=== PATIENT | female | born 1940 | race Caucasian/White ===

== ENCOUNTER 2018-05-22 16:51 | Inpatient (IN) | payer MEDICARE, MEDICAID ==
[2018-05-22] MEDS ORDERED: Sodium Chloride 0.9% 1,000 ML IV ONE (17:24)
[2018-05-22] MEDS ORDERED: Sodium Chloride 0.9% 10 ML Syringe FLUSH PRN ×2 (17:24→17:55)
[2018-05-22] MEDS ORDERED: Iopamidol 612 MG/ML 100 ML Bottle IVPUSH ONE (17:55)
--- NOTE | 2018-05-22 18:05 | EDM.PDOC ---
ED HPI GENERAL MEDICAL PROBLEM - General Chief Complaint: Neurological Problem Stated Complaint: [facility] Time Seen by Provider: 05/22/18 17:15 Source of Information: Reports: Patient History Limitations: Reports: No Limitations - History of Present Illness INITIAL COMMENTS - FREE TEXT/NARRATIVE: 77-year-old female arrives via [facility] for evaluation and treatment of injury sustained from a fall. Patient lives at home by herself. Is unclear when she fell. Her family members present states that nobody has heard from her since Sunday. Patient tells me that she fell yesterday and has been on the floor since. She states that she became dizzy. Hit her head when she fell but denies any loss of consciousness. At this point she is complaining of a headache, neck pain, bilateral shoulder pain, lower abdominal pain, back pain and pain to the left hip. She denies any nausea or vomiting. No dizziness at this time. Location: Reports: Head, Neck, Abdomen (Lower abdomen), Pelvis (Left hip), Upper Extremity, Left, Upper Extremity, Right Headache Pain Score (Numeric/FACES): 9 Bilateral Shoulder Pain Score (Numeric/FACES): 9 - Related Data Allergies Allergy/AdvReac Type Severity Reaction Status Date / Time No Known Allergies Allergy Verified 05/22/18 16:58 Home Meds: Home Meds Acetaminophen/Codeine [Tylenol with Codeine No.3 300MG/30MG] 1 cap PO Q4HR PRN 12/31/14 [History] Furosemide [Lasix] 40 mg PO DAILY 12/31/14 [History] Magnesium Oxide 400 mg PO DAILY 12/31/14 [History] Metoprolol Tartrate 50 mg PO BID 12/31/14 [History] Multivitamin [Multivitamins] 1 tab PO DAILY 12/31/14 [History] Potassium Chloride 40 meq PO DAILY 12/31/14 [History] amLODIPine [Norvasc] 5 mg PO DAILY 12/31/14 [History] Rosuvastatin [Crestor] 40 mg PO DAILY 04/15/15 [History] Clopidogrel [Plavix] 75 mg PO DAILY 05/22/18 [History] Sertraline [Zoloft] 100 mg PO DAILY 05/22/18 [History] Spironolactone [Aldactone] 25 mg PO DAILY 05/22/18 [History] Past Medical History HEENT History: Reports: Other (See Below) Other HEENT History: bilateral hearing loss Cardiovascular History: Reports: Heart Failure, High Cholesterol, Hypertension, [place], Other (See Below) Other Cardiovascular History: aortic stenosis Gastrointestinal History: Reports: Other (See Below) Other Gastrointestinal History: hernia Genitourinary History: Reports: Other (See Below) Other Genitourinary History: hematuria Musculoskeletal History: Reports: Gout Psychiatric History: Reports: Depression - Infectious Disease History Infectious Disease History: Reports: Scarlet Fever - Past Surgical History Cardiovascular Surgical History: Reports: Coronary Artery Bypass GI Surgical History: Reports: Cholecystectomy Musculoskeletal Surgical History: Reports: Knee Replacement, Shoulder Replacement, Other (See Below) Other Musculoskeletal Surgeries/Procedures:: lumbar decompression Social & Family History - Tobacco Use Smoking Status *Q: Former Smoker Used Tobacco, but Quit: Yes Month/Year Tobacco Last Used: 20 years ago - Caffeine Use Caffeine Use: Reports: Coffee, Tea - Alcohol Use Days Per Week of Alcohol Use: 7 Number of Drinks Per Day: 4 Total Drinks Per Week: 28 - Recreational Drug Use Recreational Drug Use: No ED ROS GENERAL - Review of Systems Review Of Systems: See Below Constitutional: Denies: Weakness Respiratory: Denies: Shortness of Breath Cardiovascular: Denies: Chest Pain GI/Abdominal: Reports: Abdominal Pain (Lower abdomen). Denies: Nausea, Vomiting Musculoskeletal: Reports: Neck Pain, Shoulder Pain (Bilateral), Other (Left hip pain) Neurological: Reports: Headache. Denies: Numbness, Syncope, Tingling, Weakness ED EXAM, GENERAL - Physical Exam Exam: See Below Exam Limited By: No Limitations General Appearance: Alert, WD/WN, No Apparent Distress Eye Exam: Bilateral Eye: EOMI, Normal Inspection, PERRL Ears: Normal External Exam Nose: Normal Inspection Throat/Mouth: Normal Inspection, Normal Lips, Normal Voice, No Airway Compromise Head: Other (Scalp tenderness to the right posterior parietal scalp) Neck: Normal Inspection, Supple, Non-Tender, Full Range of Motion Respiratory/Chest: No Respiratory Distress, Lungs Clear, Normal Breath Sounds, Chest Non-Tender Cardiovascular: Normal Peripheral Pulses, Regular Rate, Rhythm, No Murmur GI/Abdominal: Normal Bowel Sounds, Soft, Non-Tender Extremities: Normal Inspection (No obvious deformities to the bilateral shoulders. Pelvis stable. No external rotation to the bilateral lower legs. No limb length shortening.) Neurological: Alert, Oriented, Normal Cognition, Other (Smile is symmetric. No slurred speech. Medical Imaging Tech strength is 5 out of 5 bilaterally. Dorsiflexion plantar flexion 5 out of 5 bilaterally.) Psychiatric: Normal Affect, Normal Mood Skin Exam: Warm, Dry, Normal Color EKG INTERPRETATION EKG Date: 05/22/18 Time: 17:30 Rhythm: NSR Rate (Beats/Min): 93 [place]: Normal P-Wave: Present QRS: Normal ST-T: Normal QT: Normal EKG Interpretation Comments: Normal sinus rhythm at 93 bpm. Left ventricular hypertrophy pattern with strain. Decreased voltage limb leads. Nonspecific intraventricular conduction delay. QT borderline prolonged, QTC 488. Reviewed by myself and Dr. Carty. Course - Vital Signs Last Recorded V/S: Last Vital Signs Temp 98.9 F 05/22/18 16:54 Pulse 90 05/22/18 16:54 Resp 18 05/22/18 16:54 BP 203/96 H 05/22/18 16:54 Pulse Ox 99 05/22/18 16:54 - Orders/Labs/Meds Orders: Active Orders 24 hr Category Date Time Status Patient Status [ADT] Routine ADT 05/22/18 22:04 Active Cardiac Monitoring [RC] CONTINUOUS Care 05/22/18 20:53 Active EKG 12 Lead [EKG Documentation Completion] [RC] STAT Care 05/22/18 17:24 Active Height and Weight [RC] DAILY Care 05/22/18 20:52 Active Intake and Output [RC] QSHIFT Care 05/22/18 20:53 Active Oxygen Therapy [RC] PRN Care 05/22/18 20:52 Active Peripheral IV Care [RC] . DIRECTED Care 05/22/18 17:25 Active RT Aerosol Therapy [RC] ASDIRECTED Care 05/22/18 20:57 Active Up With Assistance [RC] ASDIRECTED Care 05/22/18 20:52 Active Up ad [place] [RC] ASDIRECTED Care 05/22/18 20:52 Active Urinary Catheter Assessment [RC] ASDIRECTED Care 05/22/18 17:36 Active Urinary Catheter Insertion [Insert Urinary Catheter] [ Care 05/22/18 17:45 Ordered OM.PC] Q24H VTE/DVT Education [RC] PER UNIT ROUTINE Care 05/22/18 20:52 Active Vital Signs [RC] Q4H Care 05/22/18 20:52 Active Consult to Case Management/Coloring Machine Operator [CONS] Cons 05/22/18 20:52 Active Routine Consult to Spiritual Care [CONS] Routine Cons 05/22/18 20:52 Active OT Evaluation and Treatment [CONS] Routine Cons 05/22/18 20:52 Active PT Evaluation and Treatment [CONS] Routine Cons 05/22/18 20:52 Active Respiratory Care Assess and Treatment [CONS] Routine Cons 05/22/18 20:52 Active 2 Gram Sodium Diet [DIET] Diet 05/22/18 Breakfast Active Heart Healthy Diet [DIET] Diet 05/22/18 Dinner Active Cervical Spine wo Cont [CT] Stat Exams 05/22/18 17:24 Taken Chest Abdomen Pelvis w Cont [CT] Stat Exams 05/22/18 17:24 Taken Head wo Cont [CT] Stat Exams 05/22/18 17:24 Taken BASIC METABOLIC PANEL,BMP [CHEM] AM Lab 05/23/18 05:11 Ordered BASIC METABOLIC PANEL,BMP [CHEM] AM Lab 05/24/18 05:11 Ordered BASIC METABOLIC PANEL,BMP [CHEM] AM Lab 05/25/18 05:11 Ordered BASIC METABOLIC PANEL,BMP [CHEM] AM Lab 05/26/18 05:11 Ordered BASIC METABOLIC PANEL,BMP [CHEM] AM Lab 05/27/18 05:11 Ordered C-REACTIVE PROTEIN [CHEM] AM Lab 05/23/18 05:11 Ordered C-REACTIVE PROTEIN [CHEM] AM Lab 05/24/18 05:11 Ordered C-REACTIVE PROTEIN [CHEM] AM Lab 05/25/18 05:11 Ordered C-REACTIVE PROTEIN [CHEM] AM Lab 05/26/18 05:11 Ordered C-REACTIVE PROTEIN [CHEM] AM Lab 05/27/18 05:11 Ordered CBC WITH AUTO DIFF [HEME] AM Lab 05/23/18 05:11 Ordered CBC WITH AUTO DIFF [HEME] AM Lab 05/24/18 05:11 Ordered CBC WITH AUTO DIFF [HEME] AM Lab 05/25/18 05:11 Ordered CBC WITH AUTO DIFF [HEME] AM Lab 05/26/18 05:11 Ordered CBC WITH AUTO DIFF [HEME] AM Lab 05/27/18 05:11 Ordered CPK [CREATINE KINASE,CK] [CHEM] AM Lab 05/23/18 05:11 Ordered CULTURE BLOOD [BC] Stat Lab 05/22/18 21:03 Ordered CULTURE BLOOD [BC] Stat Lab 05/22/18 21:03 Ordered CULTURE URINE [RM] Stat Lab 05/22/18 17:20 Received MAGNESIUM [CHEM] AM Lab 05/23/18 05:11 Ordered MAGNESIUM [CHEM] AM Lab 05/24/18 05:11 Ordered MAGNESIUM [CHEM] AM Lab 05/25/18 05:11 Ordered MAGNESIUM [CHEM] AM Lab 05/26/18 05:11 Ordered MAGNESIUM [CHEM] AM Lab 05/27/18 05:11 Ordered PRO B-TYPE NATRIUR PEPT,BNPPRO [CHEM] DAILY Lab 05/23/18 05:11 Ordered PRO B-TYPE NATRIUR PEPT,BNPPRO [CHEM] DAILY Lab 05/24/18 05:11 Ordered PRO B-TYPE NATRIUR PEPT,BNPPRO [CHEM] DAILY Lab 05/25/18 05:11 Ordered PRO B-TYPE NATRIUR PEPT,BNPPRO [CHEM] DAILY Lab 05/26/18 05:11 Ordered Acetaminophen [Tylenol] Med 05/22/18 20:52 Active 650 mg PO Q4H PRN Acetaminophen/Codeine [Tylenol with Codeine No.3 300MG/ Med 05/22/18 20:49 Active 30MG] 1 tab PO Q4H PRN Acetaminophen/HYDROcodone [[place] 325-5 MG] Med 05/22/18 20:52 Active 1 tab PO Q4H PRN Albuterol/Ipratropium [DuoNeb 3.0-0.5 MG/3 ML] Med 05/22/18 20:52 Active 3 ml NEB Q4H PRN Bisacodyl [Dulcolax] Med 05/22/18 20:52 Active 5 mg PO DAILY PRN Clopidogrel [Plavix] Med 05/23/18 09:00 Active 75 mg PO DAILY Docusate Sodium [Colace] Med 05/22/18 20:52 Active 100 mg PO BID PRN Docusate Sodium/Sennosides [Senna Plus] Med 05/22/18 20:52 Active 1 tab PO BID PRN Furosemide [Lasix] Med 05/23/18 09:00 Active 40 mg PO DAILY HYDROmorphone [Dilaudid] Med 05/22/18 20:52 Active 0.25 mg IVPUSH Q2H PRN LORazepam [Ativan] Med 05/22/18 20:52 Active 0.25 mg IV Q6H PRN Magnesium Oxide Med 05/23/18 09:00 Active 400 mg PO DAILY Magnesium Rep Pharmacy to Dose [Pharmacy to Dose - Med 05/22/18 21:00 Pending Magnesium Replacement] 1 dose .XX ASDIRECTED Metoprolol Tartrate [Lopressor] Med 05/22/18 20:52 Active 5 mg IVPUSH Q4H PRN Metoprolol Tartrate [Lopressor] Med 05/22/18 21:00 Active 50 mg PO BID Multivitamins,Therapeutic [Thera] Med 05/23/18 09:00 Active 1 each PO DAILY Nicotine [Habitrol] Med 05/22/18 20:52 Active 21 mg TRDERM DAILY PRN Ondansetron [Zofran] Med 05/22/18 20:52 Active 4 mg IV Q6H PRN Polyethylene Glycol 3350 [MiraLAX] Med 05/22/18 20:52 Active 17 gm PO DAILY PRN Potassium Chloride [Klor-Con M20] Med 05/23/18 09:00 Active 40 meq PO DAILY Potassium Rep Pharmacy to Dose [Pharmacy to Dose - Med 05/22/18 21:00 Pending Potassium Replacement] 1 dose .XX ASDIRECTED Promethazine [Phenergan] 6.25 mg Med 05/22/18 20:52 Active Sodium Chloride 0.9% [Normal Saline] 50 ml IV Q6H Remove Patch Med 05/23/18 09:00 Active 1 ea TRDERM DAILY Rosuvastatin [Crestor] Med 05/23/18 09:00 Active 40 mg PO DAILY Saccharomyces Boulardii [Florastor] Med 05/23/18 09:00 Active 250 mg PO DAILY Sertraline [Zoloft] Med 05/23/18 09:00 Active 100 mg PO DAILY Sodium Chloride 0.9% [Saline Flush] Med 05/22/18 17:24 Active 10 ml FLUSH ASDIRECTED PRN Sodium Chloride 0.9% [Saline Flush] Med 05/22/18 17:55 Active 10 ml FLUSH ONETIME PRN Spironolactone [Aldactone] Med 05/23/18 09:00 Active 25 mg PO DAILY Temazepam [Restoril] Med 05/22/18 20:52 Active 7.5 mg PO BEDTIME PRN amLODIPine [Norvasc] Med 05/23/18 09:00 Active 5 mg PO DAILY cefTRIAXone [Rocephin] 1 gm Med 05/23/18 18:00 Active Sodium Chloride 0.9% [Normal Saline] 100 ml IV Q24H hydrALAZINE [Apresoline] Med 05/22/18 20:52 Active 20 mg IVPUSH Q4H PRN Blood Culture x2 Reflex Set [OM.PC] Stat Oth 05/22/18 21:02 Ordered Peripheral IV Insertion Adult [OM.PC] Routine Oth 05/22/18 17:24 Ordered Precautions [COMM] Routine Oth 05/22/18 21:05 Ordered Resuscitation Status Routine Resus Stat 05/22/18 20:52 Ordered Medication Orders Acetaminophen (Tylenol) 650 mg PO Q4H PRN PRN Reason: Pain (Mild 1-3)/fever Acetaminophen/Codeine Phosphate (Tylenol With Codeine No.3 300mg/30mg) 1 tab PO Q4H PRN PRN Reason: Pain Hydrocodone Bitart/Acetaminophen ([place] 325-5 Mg) 1 tab PO Q4H PRN PRN Reason: Pain (moderate 4-6) Albuterol/Ipratropium (Duoneb 3.0-0.5 Mg/3 Ml) 3 ml NEB Q4H PRN PRN Reason: Shortness Of Breath/wheezing Amlodipine Besylate (Norvasc) 5 mg PO DAILY [facility] Bisacodyl (Dulcolax) 5 mg PO DAILY PRN PRN Reason: Constipation Clopidogrel Bisulfate (Plavix) 75 mg PO DAILY [facility] Docusate Sodium (Colace) 100 mg PO BID PRN PRN Reason: Constipation Furosemide (Lasix) 40 mg PO DAILY [facility] Hydralazine HCl (Apresoline) 20 mg IVPUSH Q4H PRN PRN Reason: Hypertension Hydromorphone HCl (Dilaudid) 0.25 mg IVPUSH Q2H PRN PRN Reason: Pain (severe 7-10) Promethazine HCl 6.25 mg/ (Sodium Chloride) 50.25 mls @ 100 mls/hr IV Q6H PRN PRN Reason: Nausea/Vomiting Ceftriaxone Sodium 1 gm/ (Sodium Chloride) 100 mls @ 200 mls/hr IV Q24H [facility] Lorazepam (Ativan) 0.25 mg IV Q6H PRN PRN Reason: Anxiety Magnesium Oxide (Magnesium Oxide) 400 mg PO DAILY [facility] Magnesium Sulfate (Pharmacy To Dose - Magnesium Replacement) 1 dose .XX ASDIRECTED [facility] Metoprolol Tartrate (Lopressor) 50 mg PO BID [facility] Metoprolol Tartrate (Lopressor) 5 mg IVPUSH Q4H PRN PRN Reason: Tachycardia Miscellaneous Information (Remove Patch) 1 ea TRDERM DAILY [facility] Multivitamins (Thera) 1 each PO DAILY [facility] Nicotine (Habitrol) 21 mg TRDERM DAILY PRN PRN Reason: Nicotine Dependence Ondansetron HCl (Zofran) 4 mg IV Q6H PRN PRN Reason: Nausea/Vomiting Polyethylene Glycol (Miralax) 17 gm PO DAILY PRN PRN Reason: Constipation Potassium Chloride (Klor-Con M20) 40 meq PO DAILY [facility] Potassium Chloride (Pharmacy To Dose - Potassium Replacement) 1 dose .XX ASDIRECTED [facility] Rosuvastatin Calcium (Crestor) 40 mg PO DAILY [facility] Saccharomyces Boulardii (Florastor) 250 mg PO DAILY [facility] Senna/Docusate Sodium (Senna Plus) 1 tab PO BID PRN PRN Reason: Constipation Sertraline HCl (Zoloft) 100 mg PO DAILY [facility] Sodium Chloride (Saline Flush) 10 ml FLUSH ASDIRECTED PRN PRN Reason: Keep Vein Open Last Admin: 05/22/18 17:41 Dose: 10 ml Sodium Chloride (Saline Flush) 10 ml FLUSH ONETIME PRN PRN Reason: IV FLUSH Last Admin: 05/22/18 18:20 Dose: 10 ml Spironolactone (Aldactone) 25 mg PO DAILY [facility] Temazepam (Restoril) 7.5 mg PO BEDTIME PRN PRN Reason: Sleep Labs: Laboratory Tests 05/22/18 05/22/18 05/22/18 Range/Units 17:15 18:00 18:00 WBC 10.91 H (3.98-10.04) K/mm3 RBC 4.23 (3.98-5.22) M/mm3 Hgb 13.1 (11.2-15.7) gm/L Hct 39.8 (34.1-44.9) % MCV 94.1 (79.4-94.8) fl MCH 31.0 (25.6-32.2) pg MCHC 32.9 (32.2-35.5) g/dl RDW Std Deviation 45.5 (36.4-46.3) fL Plt Count 194 (182-369) K/mm3 MPV 8.9 L (9.4-12.3) fl Neutrophils % (Manual) 91 H (40-60) % Band Neutrophils % 0 (0-10) % Lymphocytes % (Manual) 8 L (20-40) % Atypical Lymphs % 0 % Monocytes % (Manual) 1 L (2-10) % Eosinophils % (Manual) 0 L (0.7-5.8) % Basophils % (Manual) 0 L (0.1-1.2) Platelet Estimate Adequate Plt Morphology Comment Normal Anisocytosis 1+ slight Microcytosis 1+ slight Macrocytosis 1+ slight RBC Morph Comment Abnormal PT (9.5-12.1) SECONDS INR APTT (24-31) SECONDS Sodium 140 (136-145) mEq/L Potassium 4.2 (3.5-5.1) mEq/L Chloride 102 (98-107) mEq/L Carbon Dioxide 19 L (21-32) mEq/L Anion Gap 23.2 H (5-15) BUN 16 (7-18) mg/dL Creatinine 1.2 H (0.55-1.02) mg/dL Est Cr Clr Drug Dosing 27.30 mL/min Estimated GFR (MDRD) 43 (>60) mL/min BUN/Creatinine Ratio 13.3 L (14-18) Glucose 89 (83-115) mg/dL Lactic Acid (0.4-2.0) mmol/L Calcium 9.8 (8.5-10.1) mg/dL Magnesium 1.8 (1.8-2.4) mg/dl Total Bilirubin 0.7 (0.2-1.0) mg/dL AST 45 H (15-37) U/L ALT 37 (14-59) U/L Alkaline Phosphatase 80 (46-116) U/L Creatine Kinase 661 H (26-192) U/L Troponin I 0.052 (0.00-0.056) ng/mL NT-Pro-B Natriuret Pep (0-450) pg/mL Total Protein 7.8 (6.4-8.2) g/dl Albumin 3.7 (3.4-5.0) g/dl Globulin 4.1 gm/dL Albumin/Globulin Ratio 0.9 L (1-2) Urine Color Yellow (Yellow) Urine Appearance Clear (Clear) Urine pH 6.0 (5.0-8.0) Ur Specific [place] > or = 1.030 (1.005-1.030) Urine Protein 3+ H (Negative) Urine Glucose (UA) Negative (Negative) Urine Ketones 3+ H (Negative) Urine Occult Blood 2+ H (Negative) Urine Nitrite Positive H (Negative) Urine Bilirubin Negative (Negative) Urine Urobilinogen 0.2 (0.2-1.0) Ur Leukocyte Esterase 1+ H (Negative) Urine RBC Not seen (0-5) /hpf Urine WBC 30-40 H (0-5) /hpf Ur Epithelial Cells 0-5 (0-5) /hpf Urine Bacteria Many H (FEW) /hpf Urine Mucus Not seen (FEW) /hpf 05/22/18 05/22/18 05/22/18 Range/Units 18:00 18:00 20:05 WBC (3.98-10.04) K/mm3 RBC (3.98-5.22) M/mm3 Hgb (11.2-15.7) gm/L Hct (34.1-44.9) % MCV (79.4-94.8) fl MCH (25.6-32.2) pg MCHC (32.2-35.5) g/dl RDW Std Deviation (36.4-46.3) fL Plt Count (182-369) K/mm3 MPV (9.4-12.3) fl Neutrophils % (Manual) (40-60) % Band Neutrophils % (0-10) % Lymphocytes % (Manual) (20-40) % Atypical Lymphs % % Monocytes % (Manual) (2-10) % Eosinophils % (Manual) (0.7-5.8) % Basophils % (Manual) (0.1-1.2) Platelet Estimate Plt Morphology Comment Anisocytosis Microcytosis Macrocytosis RBC Morph Comment PT 10.7 (9.5-12.1) SECONDS INR 0.98 APTT 30 (24-31) SECONDS Sodium (136-145) mEq/L Potassium (3.5-5.1) mEq/L Chloride (98-107) mEq/L Carbon Dioxide (21-32) mEq/L Anion Gap (5-15) BUN (7-18) mg/dL Creatinine (0.55-1.02) mg/dL Est Cr Clr Drug Dosing mL/min Estimated GFR (MDRD) (>60) mL/min BUN/Creatinine Ratio (14-18) Glucose (83-115) mg/dL Lactic Acid 0.9 (0.4-2.0) mmol/L Calcium (8.5-10.1) mg/dL Magnesium (1.8-2.4) mg/dl Total Bilirubin (0.2-1.0) mg/dL AST (15-37) U/L ALT (14-59) U/L Alkaline Phosphatase (46-116) U/L Creatine Kinase (26-192) U/L Troponin I (0.00-0.056) ng/mL NT-Pro-B Natriuret Pep 3384 H (0-450) pg/mL Total Protein (6.4-8.2) g/dl Albumin (3.4-5.0) g/dl Globulin gm/dL Albumin/Globulin Ratio (1-2) Urine Color (Yellow) Urine Appearance (Clear) Urine pH (5.0-8.0) Ur Specific [place] (1.005-1.030) Urine Protein (Negative) Urine Glucose (UA) (Negative) Urine Ketones (Negative) Urine Occult Blood (Negative) Urine Nitrite (Negative) Urine Bilirubin (Negative) Urine Urobilinogen (0.2-1.0) Ur Leukocyte Esterase (Negative) Urine RBC (0-5) /hpf Urine WBC (0-5) /hpf Ur Epithelial Cells (0-5) /hpf Urine Bacteria (FEW) /hpf Urine Mucus (FEW) /hpf Meds: Medications Generic Name Dose Route Start Last Admin Trade Name Freq PRN Reason Stop Dose Admin Acetaminophen 650 mg 05/22/18 20:52 Tylenol PO Q4H PRN Pain (Mild 1-3)/fever Acetaminophen/Codeine Phosphate 1 tab 05/22/18 20:49 Tylenol With Codeine No.3 300mg/30mg PO Q4H PRN Pain Hydrocodone Bitart/Acetaminophen 1 tab 05/22/18 20:52 [place] 325-5 Mg PO Q4H PRN Pain (moderate 4-6) Albuterol/Ipratropium 3 ml 05/22/18 20:52 Duoneb 3.0-0.5 Mg/3 Ml NEB Q4H PRN Shortness Of Breath/wheezing Amlodipine Besylate 5 mg 05/23/18 09:00 Norvasc PO DAILY [facility] Bisacodyl 5 mg 05/22/18 20:52 Dulcolax PO DAILY PRN Constipation Clopidogrel Bisulfate 75 mg 05/23/18 09:00 Plavix PO DAILY [facility] Docusate Sodium 100 mg 05/22/18 20:52 Colace PO BID PRN Constipation Furosemide 40 mg 05/23/18 09:00 Lasix PO DAILY [facility] Hydralazine HCl 20 mg 05/22/18 20:52 Apresoline IVPUSH Q4H PRN Hypertension Hydromorphone HCl 0.25 mg 05/22/18 20:52 Dilaudid IVPUSH Q2H PRN Pain (severe 7-10) Promethazine HCl 6.25 mg/ 50.25 mls @ 100 mls/hr 05/22/18 20:52 Sodium Chloride IV Q6H PRN Nausea/Vomiting Ceftriaxone Sodium 1 gm/ 100 mls @ 200 mls/hr 05/23/18 18:00 Sodium Chloride IV Q24H [facility] Lorazepam 0.25 mg 05/22/18 20:52 Ativan IV Q6H PRN Anxiety Magnesium Oxide 400 mg 05/23/18 09:00 Magnesium Oxide PO DAILY [facility] Magnesium Sulfate 1 dose 05/22/18 21:00 Pharmacy To Dose - Magnesium Replacement .XX ASDIRECTED [facility] Metoprolol Tartrate 50 mg 05/22/18 21:00 Lopressor PO BID [facility] Metoprolol Tartrate 5 mg 05/22/18 20:52 Lopressor IVPUSH Q4H PRN Tachycardia Miscellaneous Information 1 ea 05/23/18 09:00 Remove Patch TRDERM DAILY [facility] Multivitamins 1 each 05/23/18 09:00 Thera PO DAILY [facility] Nicotine 21 mg 05/22/18 20:52 Habitrol TRDERM DAILY PRN Nicotine Dependence Ondansetron HCl 4 mg 05/22/18 20:52 Zofran IV Q6H PRN Nausea/Vomiting Polyethylene Glycol 17 gm 05/22/18 20:52 Miralax PO DAILY PRN Constipation Potassium Chloride 40 meq 05/23/18 09:00 Klor-Con M20 PO DAILY [facility] Potassium Chloride 1 dose 05/22/18 21:00 Pharmacy To Dose - Potassium Replacement .XX ASDIRECTED [facility] Rosuvastatin Calcium 40 mg 05/23/18 09:00 Crestor PO DAILY [facility] Saccharomyces Boulardii 250 mg 05/23/18 09:00 Florastor PO DAILY [facility] Senna/Docusate Sodium 1 tab 05/22/18 20:52 Senna Plus PO BID PRN Constipation Sertraline HCl 100 mg 05/23/18 09:00 Zoloft PO DAILY [facility] Sodium Chloride 10 ml 05/22/18 17:24 05/22/18 17:41 Saline Flush FLUSH 10 ml ASDIRECTED PRN Administration Keep Vein Open Sodium Chloride 10 ml 05/22/18 17:55 05/22/18 18:20 Saline Flush FLUSH 10 ml ONETIME PRN Administration IV FLUSH Spironolactone 25 mg 05/23/18 09:00 Aldactone PO DAILY [facility] Temazepam 7.5 mg 05/22/18 20:52 Restoril PO BEDTIME PRN Sleep Discontinued Medications Generic Name Dose Route Start Last Admin Trade Name Freq PRN Reason Stop Dose Admin Sodium Chloride 1,000 mls @ 500 mls/hr 05/22/18 17:24 05/22/18 17:40 Normal Saline IV 05/22/18 19:23 500 mls/hr ONETIME ONE Administration Ceftriaxone Sodium 2 gm/ 100 mls @ 100 mls/hr 05/22/18 19:09 05/22/18 19:20 Sodium Chloride IV 05/22/18 20:08 100 mls/hr ONETIME ONE Administration Iopamidol 100 ml 05/22/18 17:55 05/22/18 18:20 Isovue-300 (61%) IVPUSH 05/22/18 17:56 100 ml ONETIME ONE Administration Magnesium Oxide 400 mg 05/22/18 21:15 Magnesium Oxide PO 05/22/18 21:16 ONETIME ONE - Radiology Interpretation Free Text/Narrative:: CT of the head without contrast impression per Vrad : no acute intercranial findings. CT of the cervical spine without contrast impression per vrad : no fracture. Cervical spondylosis as noted. CT of the chest with IV contrast impression per vrad : no acute traumatic findings. CT of the abdomen and pelvis with IV contrast impression per vrad : no acute traumatic findings. - Re-Assessments/Exams Free Text/Narrative Re-Assessment/Exam: 05/22/18 22:00 I reviewed the labs, EKG and imaging with the patient. At this time it appears she is has dehydration and urinary tract infection. 2 mg of IV Rocephin ordered. Urine sent for culture. I do not feel that she is safe to return home by herself and am recommending admission. Informed that she would be an observation admission at this time and encouraged to bring medications from home to help cover cost. Informed of chance of the stay not being covered by Medicare. Agreed to the admission. Informed family that she will likely see social work and likely a discussion of prison placement will take place. They will discuss this further when the patient's daughter arrives from [place]. Case discussed with Dr. Curiel, hospitalist siebel consultant. He agrees to the admission. Departure - Departure Time of Disposition: 22:05 Disposition: Refer to Observation Condition: Fair Clinical Impression: UTI (urinary tract infection), Dehydration, Fall, Elevated CPK - Discharge Information *PRESCRIPTION DRUG MONITORING PROGRAM REVIEWED*: No *COPY OF PRESCRIPTION DRUG MONITORING REPORT IN PATIENT TARIK: No Referrals: PCP,None [Primary Care Provider] - Marisol Samuels MD [Physician] - Forms: ED Department Discharge Additional Instructions: Patient admitted for observation for status post fall as well as management of dehydration and urinary tract infection. - My Orders Last 24 Hours: My Active Orders 05/22/18 17:20 CULTURE URINE [RM] Stat 05/22/18 17:24 EKG 12 Lead [EKG Documentation Completion] [RC] STAT Cervical Spine wo Cont [CT] Stat Chest Abdomen Pelvis w Cont [CT] Stat Head wo Cont [CT] Stat Sodium Chloride 0.9% [Saline Flush] 10 ml FLUSH ASDIRECTED PRN Peripheral IV Insertion Adult [OM.PC] Routine 05/22/18 17:25 Peripheral IV Care [RC] . DIRECTED 05/22/18 17:36 Urinary Catheter Assessment [RC] ASDIRECTED 05/22/18 17:45 Urinary Catheter Insertion [Insert Urinary Catheter] [OM.PC] Q24H 05/22/18 17:55 Sodium Chloride 0.9% [Saline Flush] 10 ml FLUSH ONETIME PRN 05/22/18 22:04 Patient Status [ADT] Routine - Assessment/Plan Last 24 Hours: My Active Orders 05/22/18 17:20 CULTURE URINE [RM] Stat 05/22/18 17:24 EKG 12 Lead [EKG Documentation Completion] [RC] STAT Cervical Spine wo Cont [CT] Stat Chest Abdomen Pelvis w Cont [CT] Stat Head wo Cont [CT] Stat Sodium Chloride 0.9% [Saline Flush] 10 ml FLUSH ASDIRECTED PRN Peripheral IV Insertion Adult [OM.PC] Routine 05/22/18 17:25 Peripheral IV Care [RC] . DIRECTED 05/22/18 17:36 Urinary Catheter Assessment [RC] ASDIRECTED 05/22/18 17:45 Urinary Catheter Insertion [Insert Urinary Catheter] [OM.PC] Q24H 05/22/18 17:55 Sodium Chloride 0.9% [Saline Flush] 10 ml FLUSH ONETIME PRN 05/22/18 22:04 Patient Status [ADT] Routine
[2018-05-22] MEDS ORDERED: cefTRIAXone 2 GM in Sodium Chloride 0.9% 100 ML IV ONE (19:09)
[2018-05-22] MEDS ORDERED: Acetaminophen/Codeine 300-30 MG Tab PO PRN (20:49)
[2018-05-22] MEDS ORDERED: Ondansetron 4 MG/2 ML SDV IV PRN (20:52)
[2018-05-22] MEDS ORDERED: Promethazine 6.25 MG in Sodium Chloride 0.9% 50 ML IV PRN (20:52)
[2018-05-22] MEDS ORDERED: Polyethylene Glycol 3350 Powder 17 GM Packet PO PRN (20:52)
[2018-05-22] MEDS ORDERED: LORazepam 2 MG/ML SDV IV PRN (20:52)
[2018-05-22] MEDS ORDERED: Acetaminophen/HYDROcodone 325-5 MG Tab PO PRN (20:52)
[2018-05-22] MEDS ORDERED: Docusate Sodium 100 MG Cap PO PRN (20:52)
[2018-05-22] MEDS ORDERED: Nicotine 21 MG/24 Hr Patch TRDERM PRN (20:52)
[2018-05-22] MEDS ORDERED: Metoprolol Tartrate 5 MG/5 ML SDV IVPUSH PRN (20:52)
[2018-05-22] MEDS ORDERED: HYDROmorphone 0.5 MG/0.5 ML Syringe IVPUSH PRN (20:52)
[2018-05-22] MEDS ORDERED: Bisacodyl 5 MG Tab PO PRN (20:52)
[2018-05-22] MEDS ORDERED: Albuterol/Ipratropium 3.0-0.5 MG/3 ML Neb Soln NEB PRN (20:52)
[2018-05-22] MEDS ORDERED: Metoprolol Tartrate 50 MG Tab PO SCH (21:00)
[2018-05-22] MEDS ORDERED: Magnesium Oxide 400 MG Tab PO ONE (21:15)
[2018-05-22] MEDS: Acetaminophen 325 MG Tab PO PRN (23:34)
[2018-05-22] MEDS: Metoprolol Tartrate 50 MG Tab PO SCH (23:36)
[2018-05-22] MEDS: Magnesium Oxide 400 MG Tab PO ONE ×2 (23:54→23:55)
--- NOTE | 2018-05-23 08:44 | CT ---
CT cervical spine Technique: Multiple axial sections were obtained from above C1 inferiorly to the bottom of T3. Reconstructed sagittal and coronal images were reviewed. Findings: Severe disc space narrowing is noted at C5-C6. Moderate to severe disc space narrowing is noted at C6-C7 through T2-T3. Scattered anterior endplate osteophytes throughout cervical spine are seen. Posterior osteophytes are scattered throughout the cervical spine. Slight spondylolisthesis is noted at C6-C7 compatible with degenerative apophyseal change. Other diffuse degenerative apophyseal change is also seen throughout the cervical spine. Vertebral body heights are maintained. Degenerative change is noted between the dens and anterior arch of C1. Moderate bilateral neural foraminal stenosis noted at C2-C3. Mild right-sided neural foraminal stenosis is noted at C3-C4. Mild bilateral neural foraminal stenosis is noted at C5-C6. Moderate left-sided neural foraminal stenosis is noted at C6-C7. Other neural foramina are patent. No fracture is seen. Impression: 1. Diffuse degenerative change as noted above. 2. No acute abnormality is appreciated. Diagnostic code #2 I agree with preliminary report from [facility], finalized on 05/22/18, 7:45 PM Central Time
--- NOTE | 2018-05-23 08:44 | CT ---
CT chest Technique: Multiple axial sections were obtained through the chest. Intravenous contrast was utilized. Comparison: No prior chest CT. Findings: Coronary artery calcification is seen. Heart is mildly enlarged. Atherosclerotic calcification is noted within the thoracic aorta. Ascending aorta is slightly ectatic with AP dimension of 3.4 cm. Enlarged right lobe of the thyroid gland is seen containing ill-defined low density nodules and calcifications. No axillary adenopathy is seen. No acute parenchymal change is seen within either lung. No pneumothorax or pleural effusions are seen. Minimal interstitial fibrosis is noted. Bone window settings were reviewed which show scattered degenerative change within the spine. Previous sternotomy is noted. Impression: 1. Multiple findings as noted above. Nothing acute is appreciated on CT study of the chest. Diagnostic code #3 I agree with preliminary report from [place] [facility], finalized on 05/22/18, 7:[address] abdomen and pelvis Technique: Multiple axial sections were obtained from above the dome of the diaphragm inferiorly through the pubic symphysis. Intravenous contrast was utilized. No oral contrast has been given. Delayed images were obtained through the bladder. Findings: Calcific granulomas noted within the liver. Liver is otherwise unremarkable. Surgical clips seen from prior cholecystectomy. Spleen size is normal. Adrenal glands show no nodule. Pancreas is within normal limits. Aorta shows no aneurysm with atherosclerotic change. No retroperitoneal adenopathy is seen. No mesenteric abnormalities are seen. Atrophic left kidney is seen as compared to the right kidney. No hydronephrosis or other abnormalities seen within the kidneys. Delayed images show contrast within the bladder and within the distal ureters. Incidental sigmoid diverticuli are seen. No free fluid or inflammatory change is seen. Appendix felt to be visualized which contains an appendicolith. Bone window settings were reviewed which show scattered degenerative change within the lumbar spine. No acute osseous abnormality is appreciated. Impression: 1. Incidental findings. Nothing acute is appreciated on CT study of the abdomen and pelvis. Diagnostic code #2 I agree with preliminary report from [place], finalized on 05/22/18, 7:58 PM Central Time
[2018-05-23] MEDS ORDERED: Potassium Chloride 20 MEQ Tab.ER PO SCH (09:00)
--- NOTE | 2018-05-23 09:05 | CT ---
Head CT Technique: Multiple axial sections through the brain were obtained. Intravenous contrast was utilized. Comparison: Previous MRI brain dated 04/07/10. 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 Ventricles along with basal cisterns and sulci over the convexities are mildly prominent. Diminished density is scattered within the periventricular white matter which is compatible with small vessel ischemic demyelination change. No other abnormal parenchymal densities are seen. No evidence of intracranial hemorrhage. No midline shift or mass effect is seen. Atherosclerotic calcification is seen within left vertebral vessel and within the carotid siphon. Bone window settings were reviewed which show mild mucosal thickening within the right ethmoid sinus. No acute calvarial abnormality is seen. Impression: 1. Senescent change as noted above. Incidental sinus finding. 2. Nothing acute is seen on noncontrast head CT exam. Diagnostic code #2 I agree with preliminary report from [facility], finalized on 05/22/18, 7:41 PM Central Time
--- NOTE | 2018-05-23 09:07 | PCM.HP ---
H&P History of Present Illness - General Date of Service: 05/23/18 Admit Problem/Dx: Admission Diagnosis/Problem Admission Diagnosis/Problem Urinary tract infection Source of Information: Patient, Family, Old Records, RN Notes Reviewed History Limitations: Reports: Physical Impairment - History of Present Illness Initial Comments - Free Text/Narative: This is a 77 yo Impaired Hearing, HF with Unknown EF, HTN, HLD, CABG x 3 S/p NM , Aortic Stenosis, Gout, Hx/o Hernia, and Depression who comes in for evaluation after she had a non traumatic fall that took place the day before yesterday and has been on the floor since then. She reports a prodromal symptom of dizziness. On her way down, she hit her head but she denies any loss of consciousness. On presentation to ED, she admits to having headache, neck, shoulder, lower abdominal, back pain and left hip pain. She denies being on blood thinners. She has ambulatory assistive device but has not been using it routinely. Her initial work up in ED shows a CBC remarkable for WBC of 10.91, MVP of 8.9, Neutrophils of 91%, Lymphocytes of 8% and Monocytes of 1%. Her chemistry is significant for CO2 of 19, Ag of 23.2, Cr of 1.2, AST of 45, CK of 661 and PRoBNP level of 3384. Her UA is highly suggestive of dehydration and UTI. All her imaging studies not acutes abnormal findings per report. Patient is being admitted for UTI and Malignant HTN. She is full code. Headache Pain Score (Numeric/FACES): 9 Bilateral Shoulder Pain Score (Numeric/FACES): 9 - Related Data Allergies/Adverse Reactions: Allergies Allergy/AdvReac Type Severity Reaction Status Date / Time No Known Allergies Allergy Verified 05/22/18 16:58 Home Medications: Home Meds Acetaminophen/Codeine [Tylenol with Codeine No.3 300MG/30MG] 1 cap PO Q4HR PRN 12/31/14 [History] Furosemide [Lasix] 40 mg PO DAILY 12/31/14 [History] Magnesium Oxide 400 mg PO DAILY 12/31/14 [History] Metoprolol Tartrate 50 mg PO BID 12/31/14 [History] Multivitamin [Multivitamins] 1 tab PO DAILY 12/31/14 [History] Potassium Chloride 40 meq PO DAILY 12/31/14 [History] amLODIPine [Norvasc] 5 mg PO DAILY 12/31/14 [History] Rosuvastatin [Crestor] 40 mg PO DAILY 04/15/15 [History] Clopidogrel [Plavix] 75 mg PO DAILY 05/22/18 [History] Sertraline [Zoloft] 100 mg PO DAILY 05/22/18 [History] Spironolactone [Aldactone] 25 mg PO DAILY 05/22/18 [History] Past Medical History HEENT History: Reports: Other (See Below) Other HEENT History: bilateral hearing loss Cardiovascular History: Reports: Heart Failure, High Cholesterol, Hypertension, NM, Other (See Below) Other Cardiovascular History: aortic stenosis Gastrointestinal History: Reports: Other (See Below) Other Gastrointestinal History: hernia Genitourinary History: Reports: Other (See Below) Other Genitourinary History: hematuria Musculoskeletal History: Reports: Gout Neurological History: Reports: CVA Psychiatric History: Reports: Depression - Infectious Disease History Infectious Disease History: Reports: Scarlet Fever Other Infectious Disease History: mrsa 3.5 years ago on her leg post vein removal and became infected. - Past Surgical History Cardiovascular Surgical History: Reports: Coronary Artery Bypass GI Surgical History: Reports: Cholecystectomy Musculoskeletal Surgical History: Reports: Knee Replacement, Shoulder Replacement, Other (See Below) Other Musculoskeletal Surgeries/Procedures:: lumbar decompression Social & Family History - Family History Family Medical History: Noncontributory - Tobacco Use Smoking Status *Q: Former Smoker Used Tobacco, but Quit: Yes Month/Year Tobacco Last Used: 1979 - Caffeine Use Caffeine Use: Reports: Coffee, Tea - Alcohol Use Days Per Week of Alcohol Use: 7 Number of Drinks Per Day: 4 Total Drinks Per Week: 28 - Recreational Drug Use Recreational Drug Use: No H&P Review of Systems - Review of Systems: Review Of Systems: See Below General: Denies: Fever, Malaise, Weakness, Fatigue HEENT: Reports: No Symptoms Pulmonary: Denies: Shortness of Breath Cardiovascular: Reports: No Symptoms Gastrointestinal: Reports: Abdominal Pain. Denies: Decreased Appetite, Distension, Nausea, Vomiting Genitourinary: Reports: No Symptoms Musculoskeletal: Reports: Neck Pain, Shoulder Pain Skin: Denies: Cyanosis, Pallor, Diaphoresis, Bruising Psychiatric: Denies: Depression, Anxiety, Agitation, Hallucinations Neurological: Reports: Dizziness (before but not no more), Difficulty Walking, Gait Disturbance. Denies: Confusion, Weakness Hematologic/Lymphatic: Reports: No Symptoms Immunologic: Reports: No Symptoms Exam - Exam Exam: See Below - Vital Signs Vital Signs: Last Vital Signs Temp 36.7 C 05/23/18 08:13 Pulse 52 L 05/23/18 08:13 Resp 16 05/23/18 08:13 BP 142/76 H 05/23/18 08:13 Pulse Ox 96 05/23/18 08:13 Weight: 57.833 kg - Exam General: Alert, Oriented, Cooperative HEENT: Conjunctiva Clear, EACs Clear, EOMI, Hearing Intact, Mucosa Moist & [place] , Nares Patent, Normal Nasal Septum, Posterior Pharynx Clear, Pupils Equal Neck: Supple, Trachea Midline Lungs: Clear to Auscultation, Normal Respiratory Effort Cardiovascular: Regular Rate, Regular Rhythm, Systolic Murmur GI/Abdominal Exam: Normal Bowel Sounds, Soft, Non-Tender, No Organomegaly, No Distention, No Abnormal Bruit, No Mass (Female) Exam: Deferred Rectal (Female) Exam: Deferred Back Exam: Normal Inspection, Decreased Range of Motion Extremities: Normal Inspection, Normal Range of Motion, Non-Tender, No Pedal Edema, Normal Capillary Refill Skin: Warm, Dry, Intact Neuro Extensive - Mental Status: Oriented x3, Normal Cognition, Memory Intact Neuro Extensive - Motor, Sensory, Reflexes: CN II-XII Intact (limited but grossly intact), Abnormal Gait Psychiatric: Alert, Normal Affect, Normal Mood - Patient Data Lab Results Last 24 hrs: Laboratory Results - last 24 hr 05/22/18 05/22/18 05/22/18 Range/Units 17:15 18:00 18:00 WBC 10.91 H (3.98-10.04) K/mm3 RBC 4.23 (3.98-5.22) M/mm3 Hgb 13.1 (11.2-15.7) gm/L Hct 39.8 (34.1-44.9) % MCV 94.1 (79.4-94.8) fl MCH 31.0 (25.6-32.2) pg MCHC 32.9 (32.2-35.5) g/dl RDW Std Deviation 45.5 (36.4-46.3) fL Plt Count 194 (182-369) K/mm3 MPV 8.9 L (9.4-12.3) fl Neut % (Auto) (34.0-71.1) % Lymph % (Auto) (19.3-51.7) % [place] % (Auto) (4.7-12.5) % Eos % (Auto) (0.7-5.8) Baso % (Auto) (0.1-1.2) % Neut # (Auto) (1.56-6.13) K/mm3 Lymph # (Auto) (1.18-3.74) K/mm3 [place] # (Auto) (0.24-0.36) K/mm3 Eos # (Auto) (0.04-0.36) K/mm3 Baso # (Auto) (0.01-0.08) K/mm3 Neutrophils % (Manual) 91 H (40-60) % Band Neutrophils % 0 (0-10) % Lymphocytes % (Manual) 8 L (20-40) % Atypical Lymphs % 0 % Monocytes % (Manual) 1 L (2-10) % Eosinophils % (Manual) 0 L (0.7-5.8) % Basophils % (Manual) 0 L (0.1-1.2) Platelet Estimate Adequate Plt Morphology Comment Normal Anisocytosis 1+ slight Microcytosis 1+ slight Macrocytosis 1+ slight RBC Morph Comment Abnormal PT (9.5-12.1) SECONDS INR APTT (24-31) SECONDS Sodium 140 (136-145) mEq/L Potassium 4.2 (3.5-5.1) mEq/L Chloride 102 (98-107) mEq/L Carbon Dioxide 19 L (21-32) mEq/L Anion Gap 23.2 H (5-15) BUN 16 (7-18) mg/dL Creatinine 1.2 H (0.55-1.02) mg/dL Est Cr Clr Drug Dosing 27.30 mL/min Estimated GFR (MDRD) 43 (>60) mL/min BUN/Creatinine Ratio 13.3 L (14-18) Glucose 89 (83-115) mg/dL Lactic Acid (0.4-2.0) mmol/L Calcium 9.8 (8.5-10.1) mg/dL Magnesium 1.8 (1.8-2.4) mg/dl Total Bilirubin 0.7 (0.2-1.0) mg/dL AST 45 H (15-37) U/L ALT 37 (14-59) U/L Alkaline Phosphatase 80 (46-116) U/L Creatine Kinase 661 H (26-192) U/L Troponin I 0.052 (0.00-0.056) ng/mL C-Reactive Protein (<1.0) mg/dL NT-Pro-B Natriuret Pep (0-450) pg/mL Total Protein 7.8 (6.4-8.2) g/dl Albumin 3.7 (3.4-5.0) g/dl Globulin 4.1 gm/dL Albumin/Globulin Ratio 0.9 L (1-2) Urine Color Yellow (Yellow) Urine Appearance Clear (Clear) Urine pH 6.0 (5.0-8.0) Ur Specific [place] > or = 1.030 (1.005-1.030) Urine Protein 3+ H (Negative) Urine Glucose (UA) Negative (Negative) Urine Ketones 3+ H (Negative) Urine Occult Blood 2+ H (Negative) Urine Nitrite Positive H (Negative) Urine Bilirubin Negative (Negative) Urine Urobilinogen 0.2 (0.2-1.0) Ur Leukocyte Esterase 1+ H (Negative) Urine RBC Not seen (0-5) /hpf Urine WBC 30-40 H (0-5) /hpf Ur Epithelial Cells 0-5 (0-5) /hpf Urine Bacteria Many H (FEW) /hpf Urine Mucus Not seen (FEW) /hpf 05/22/18 05/22/18 05/22/18 Range/Units 18:00 18:00 20:05 WBC (3.98-10.04) K/mm3 RBC (3.98-5.22) M/mm3 Hgb (11.2-15.7) gm/L Hct (34.1-44.9) % MCV (79.4-94.8) fl MCH (25.6-32.2) pg MCHC (32.2-35.5) g/dl RDW Std Deviation (36.4-46.3) fL Plt Count (182-369) K/mm3 MPV (9.4-12.3) fl Neut % (Auto) (34.0-71.1) % Lymph % (Auto) (19.3-51.7) % [place] % (Auto) (4.7-12.5) % Eos % (Auto) (0.7-5.8) Baso % (Auto) (0.1-1.2) % Neut # (Auto) (1.56-6.13) K/mm3 Lymph # (Auto) (1.18-3.74) K/mm3 [place] # (Auto) (0.24-0.36) K/mm3 Eos # (Auto) (0.04-0.36) K/mm3 Baso # (Auto) (0.01-0.08) K/mm3 Neutrophils % (Manual) (40-60) % Band Neutrophils % (0-10) % Lymphocytes % (Manual) (20-40) % Atypical Lymphs % % Monocytes % (Manual) (2-10) % Eosinophils % (Manual) (0.7-5.8) % Basophils % (Manual) (0.1-1.2) Platelet Estimate Plt Morphology Comment Anisocytosis Microcytosis Macrocytosis RBC Morph Comment PT 10.7 (9.5-12.1) SECONDS INR 0.98 APTT 30 (24-31) SECONDS Sodium (136-145) mEq/L Potassium (3.5-5.1) mEq/L Chloride (98-107) mEq/L Carbon Dioxide (21-32) mEq/L Anion Gap (5-15) BUN (7-18) mg/dL Creatinine (0.55-1.02) mg/dL Est Cr Clr Drug Dosing mL/min Estimated GFR (MDRD) (>60) mL/min BUN/Creatinine Ratio (14-18) Glucose (83-115) mg/dL Lactic Acid 0.9 (0.4-2.0) mmol/L Calcium (8.5-10.1) mg/dL Magnesium (1.8-2.4) mg/dl Total Bilirubin (0.2-1.0) mg/dL AST (15-37) U/L ALT (14-59) U/L Alkaline Phosphatase (46-116) U/L Creatine Kinase (26-192) U/L Troponin I (0.00-0.056) ng/mL C-Reactive Protein (<1.0) mg/dL NT-Pro-B Natriuret Pep 3384 H (0-450) pg/mL Total Protein (6.4-8.2) g/dl Albumin (3.4-5.0) g/dl Globulin gm/dL Albumin/Globulin Ratio (1-2) Urine Color (Yellow) Urine Appearance (Clear) Urine pH (5.0-8.0) Ur Specific [place] (1.005-1.030) Urine Protein (Negative) Urine Glucose (UA) (Negative) Urine Ketones (Negative) Urine Occult Blood (Negative) Urine Nitrite (Negative) Urine Bilirubin (Negative) Urine Urobilinogen (0.2-1.0) Ur Leukocyte Esterase (Negative) Urine RBC (0-5) /hpf Urine WBC (0-5) /hpf Ur Epithelial Cells (0-5) /hpf Urine Bacteria (FEW) /hpf Urine Mucus (FEW) /hpf 05/23/18 05/23/18 05/23/18 Range/Units 05:45 05:45 05:45 WBC 8.10 (3.98-10.04) K/mm3 RBC 3.40 L (3.98-5.22) M/mm3 Hgb 10.6 L (11.2-15.7) gm/L Hct 31.9 L (34.1-44.9) % MCV 93.8 (79.4-94.8) fl MCH 31.2 (25.6-32.2) pg MCHC 33.2 (32.2-35.5) g/dl RDW Std Deviation 45.9 (36.4-46.3) fL Plt Count 174 L (182-369) K/mm3 MPV 9.7 (9.4-12.3) fl Neut % (Auto) 69.6 (34.0-71.1) % Lymph % (Auto) 18.3 L (19.3-51.7) % [place] % (Auto) 10.2 (4.7-12.5) % Eos % (Auto) 1.6 (0.7-5.8) Baso % (Auto) 0.2 (0.1-1.2) % Neut # (Auto) 5.63 (1.56-6.13) K/mm3 Lymph # (Auto) 1.48 (1.18-3.74) K/mm3 [place] # (Auto) 0.83 H (0.24-0.36) K/mm3 Eos # (Auto) 0.13 (0.04-0.36) K/mm3 Baso # (Auto) 0.02 (0.01-0.08) K/mm3 Neutrophils % (Manual) (40-60) % Band Neutrophils % (0-10) % Lymphocytes % (Manual) (20-40) % Atypical Lymphs % % Monocytes % (Manual) (2-10) % Eosinophils % (Manual) (0.7-5.8) % Basophils % (Manual) (0.1-1.2) Platelet Estimate Plt Morphology Comment Anisocytosis Microcytosis Macrocytosis RBC Morph Comment PT (9.5-12.1) SECONDS INR APTT (24-31) SECONDS Sodium 136 (136-145) mEq/L Potassium 3.6 (3.5-5.1) mEq/L Chloride 103 (98-107) mEq/L Carbon Dioxide 23 (21-32) mEq/L Anion Gap 13.6 (5-15) BUN 18 (7-18) mg/dL Creatinine 1.4 H (0.55-1.02) mg/dL Est Cr Clr Drug Dosing TNP mL/min Estimated GFR (MDRD) 36 (>60) mL/min BUN/Creatinine Ratio 12.9 L (14-18) Glucose 89 (83-115) mg/dL Lactic Acid (0.4-2.0) mmol/L Calcium 8.8 (8.5-10.1) mg/dL Magnesium 1.7 L (1.8-2.4) mg/dl Total Bilirubin (0.2-1.0) mg/dL AST (15-37) U/L ALT (14-59) U/L Alkaline Phosphatase (46-116) U/L Creatine Kinase 451 H (26-192) U/L Troponin I (0.00-0.056) ng/mL C-Reactive Protein 7.7 H* (<1.0) mg/dL NT-Pro-B Natriuret Pep 3696 H (0-450) pg/mL Total Protein (6.4-8.2) g/dl Albumin (3.4-5.0) g/dl Globulin gm/dL Albumin/Globulin Ratio (1-2) Urine Color (Yellow) Urine Appearance (Clear) Urine pH (5.0-8.0) Ur Specific [place] (1.005-1.030) Urine Protein (Negative) Urine Glucose (UA) (Negative) Urine Ketones (Negative) Urine Occult Blood (Negative) Urine Nitrite (Negative) Urine Bilirubin (Negative) Urine Urobilinogen (0.2-1.0) Ur Leukocyte Esterase (Negative) Urine RBC (0-5) /hpf Urine WBC (0-5) /hpf Ur Epithelial Cells (0-5) /hpf Urine Bacteria (FEW) /hpf Urine Mucus (FEW) /hpf Result Diagrams: 05/23/18 05:45 05/23/18 05:45 EKG INTERPRETATION EKG Date: 05/22/18 Time: 17:30 Rhythm: NSR Rate (Beats/Min): 93 [place]: Normal P-Wave: Present QRS: Normal QT: Prolonged (slightly prolonged) EKG Interpretation Comments: Has LVH pattern Problem List Initiated/Reviewed/Updated: Yes Orders Last 24hrs: Active Orders 24 hr Category Date Time Status Patient Status [ADT] Routine ADT 05/22/18 22:04 Active Height and Weight [RC] 04 Care 05/22/18 20:52 Active Intake and Output [RC] 04,16 Care 05/22/18 20:53 Active Oxygen Therapy [RC] PRN Care 05/22/18 20:52 Active RT Aerosol Therapy [RC] ASDIRECTED Care 05/22/18 20:57 Active Up With Assistance [RC] ASDIRECTED Care 05/22/18 20:52 Active Up ad [place] [RC] ASDIRECTED Care 05/22/18 20:52 Active Urinary Catheter Insertion [Insert Urinary Catheter] [ Care 05/22/18 17:45 Ordered OM.PC] Q24H VTE/DVT Education [RC] PER UNIT ROUTINE Care 05/22/18 20:52 Active Vital Signs [RC] Q4HR Care 05/22/18 20:52 Active Consult to Case Management/Security Intern [CONS] Cons 05/22/18 20:52 Active Routine Consult to Spiritual Care [CONS] Routine Cons 05/22/18 20:52 Active OT Evaluation and Treatment [CONS] Routine Cons 05/22/18 20:52 Active PT Evaluation and Treatment [CONS] Routine Cons 05/22/18 20:52 Active Respiratory Care Assess and Treatment [CONS] Routine Cons 05/22/18 20:52 Active Heart Healthy Diet [DIET] Diet 05/22/18 Dinner Active BASIC METABOLIC PANEL,BMP [CHEM] AM Lab 05/24/18 05:11 Ordered BASIC METABOLIC PANEL,BMP [CHEM] AM Lab 05/25/18 05:11 Ordered BASIC METABOLIC PANEL,BMP [CHEM] AM Lab 05/26/18 05:11 Ordered BASIC METABOLIC PANEL,BMP [CHEM] AM Lab 05/27/18 05:11 Ordered C-REACTIVE PROTEIN [CHEM] AM Lab 05/24/18 05:11 Ordered C-REACTIVE PROTEIN [CHEM] AM Lab 05/25/18 05:11 Ordered C-REACTIVE PROTEIN [CHEM] AM Lab 05/26/18 05:11 Ordered C-REACTIVE PROTEIN [CHEM] AM Lab 05/27/18 05:11 Ordered CBC WITH AUTO DIFF [HEME] AM Lab 05/24/18 05:11 Ordered CBC WITH AUTO DIFF [HEME] AM Lab 05/25/18 05:11 Ordered CBC WITH AUTO DIFF [HEME] AM Lab 05/26/18 05:11 Ordered CBC WITH AUTO DIFF [HEME] AM Lab 05/27/18 05:11 Ordered CULTURE BLOOD [BC] Stat Lab 05/22/18 21:30 Received CULTURE BLOOD [BC] Stat Lab 05/22/18 21:40 Received CULTURE MRSA SURVEY [RM] Routine Lab 05/22/18 23:50 Stop Req CULTURE URINE [RM] Stat Lab 05/22/18 17:20 Received MAGNESIUM [CHEM] AM Lab 05/24/18 05:11 Ordered MAGNESIUM [CHEM] AM Lab 05/25/18 05:11 Ordered MAGNESIUM [CHEM] AM Lab 05/26/18 05:11 Ordered MAGNESIUM [CHEM] AM Lab 05/27/18 05:11 Ordered METH-RESIST S.AUR,MRSA BY PCR [MOLEC] Routine Lab 05/23/18 07:47 Received PRO B-TYPE NATRIUR PEPT,BNPPRO [CHEM] DAILY Lab 05/24/18 05:11 Ordered PRO B-TYPE NATRIUR PEPT,BNPPRO [CHEM] DAILY Lab 05/25/18 05:11 Ordered PRO B-TYPE NATRIUR PEPT,BNPPRO [CHEM] DAILY Lab 05/26/18 05:11 Ordered Acetaminophen [Tylenol] Med 05/22/18 20:52 Active 650 mg PO Q4H PRN Acetaminophen/Codeine [Tylenol with Codeine No.3 300MG/ Med 05/22/18 20:49 Active 30MG] 1 tab PO Q4H PRN Acetaminophen/HYDROcodone [Mobile 325-5 MG] Med 05/22/18 20:52 Active 1 tab PO Q4H PRN Albuterol/Ipratropium [DuoNeb 3.0-0.5 MG/3 ML] Med 05/22/18 20:52 Active 3 ml NEB Q4H PRN Bisacodyl [Dulcolax] Med 05/22/18 20:52 Active 5 mg PO DAILY PRN Clopidogrel [Plavix] Med 05/23/18 09:00 Active 75 mg PO DAILY Docusate Sodium [Colace] Med 05/22/18 20:52 Active 100 mg PO BID PRN Docusate Sodium/Sennosides [Senna Plus] Med 05/22/18 20:52 Active 1 tab PO BID PRN Furosemide [Lasix] Med 05/23/18 09:00 Active 40 mg PO DAILY HYDROmorphone [Dilaudid] Med 05/22/18 20:52 Active 0.25 mg IVPUSH Q2H PRN LORazepam [Ativan] Med 05/22/18 20:52 Active 0.25 mg IV Q6H PRN Magnesium Oxide Med 05/23/18 09:00 Active 400 mg PO DAILY Magnesium Rep Pharmacy to Dose [Pharmacy to Dose - Med 05/22/18 21:00 Active Magnesium Replacement] 0 dose .XX ASDIRECTED PRN Metoprolol Tartrate [Lopressor] Med 05/22/18 20:52 Active 5 mg IVPUSH Q4H PRN Metoprolol Tartrate [Lopressor] Med 05/22/18 23:30 Active 50 mg PO BID Multivitamins,Therapeutic [Thera] Med 05/23/18 09:00 Active 1 each PO DAILY Nicotine [Habitrol] Med 05/22/18 20:52 Active 21 mg TRDERM DAILY PRN Ondansetron [Zofran] Med 05/22/18 20:52 Active 4 mg IV Q6H PRN Patient's Own Medication [Ptom] Med 05/23/18 09:00 Active 0 each PO DAILY Patient's Own Medication [Ptom] Med 05/23/18 09:00 Active 0 each PO DAILY Polyethylene Glycol 3350 [MiraLAX] Med 05/22/18 20:52 Active 17 gm PO DAILY PRN Potassium Rep Pharmacy to Dose [Pharmacy to Dose - Med 05/22/18 21:00 Active Potassium Replacement] 0 dose .XX ASDIRECTED PRN Promethazine [Phenergan] 6.25 mg Med 05/22/18 20:52 Active Sodium Chloride 0.9% [Normal Saline] 50 ml IV Q6H Remove Patch Med 05/23/18 09:00 Active 1 ea TRDERM DAILY Saccharomyces Boulardii [Florastor] Med 05/23/18 09:00 Active 250 mg PO DAILY Sodium Chloride 0.9% [Saline Flush] Med 05/22/18 17:24 Active 10 ml FLUSH ASDIRECTED PRN Sodium Chloride 0.9% [Saline Flush] Med 05/22/18 17:55 Active 10 ml FLUSH ONETIME PRN Spironolactone [Aldactone] Med 05/23/18 09:00 Active 25 mg PO DAILY Temazepam [Restoril] Med 05/22/18 20:52 Active 7.5 mg PO BEDTIME PRN amLODIPine [Norvasc] Med 05/23/18 09:00 Active 5 mg PO DAILY cefTRIAXone [Rocephin] 1 gm Med 05/23/18 18:00 Active Sodium Chloride 0.9% [Normal Saline] 100 ml IV Q24H hydrALAZINE [Apresoline] Med 05/22/18 20:52 Active 20 mg IVPUSH Q4H PRN Blood Culture x2 Reflex Set [OM.PC] Stat Oth 05/22/18 21:02 Ordered Peripheral IV Insertion Adult [OM.PC] Routine Oth 05/22/18 17:24 Ordered Precautions [COMM] Routine Oth 05/22/18 21:05 Ordered Resuscitation Status Routine Resus Stat 05/22/18 23:06 Ordered Medication Orders Acetaminophen (Tylenol) 650 mg PO Q4H PRN PRN Reason: Pain (Mild 1-3)/fever Last Admin: 05/22/18 23:34 Dose: 650 mg Acetaminophen/Codeine Phosphate (Tylenol With Codeine No.3 300mg/30mg) 1 tab PO Q4H PRN PRN Reason: Pain Hydrocodone Bitart/Acetaminophen (Mobile 325-5 Mg) 1 tab PO Q4H PRN PRN Reason: Pain (moderate 4-6) Albuterol/Ipratropium (Duoneb 3.0-0.5 Mg/3 Ml) 3 ml NEB Q4H PRN PRN Reason: Shortness Of Breath/wheezing Amlodipine Besylate (Norvasc) 5 mg PO DAILY [facility] Bisacodyl (Dulcolax) 5 mg PO DAILY PRN PRN Reason: Constipation Clopidogrel Bisulfate (Plavix) 75 mg PO DAILY [facility] Docusate Sodium (Colace) 100 mg PO BID PRN PRN Reason: Constipation Furosemide (Lasix) 40 mg PO DAILY [facility] Hydralazine HCl (Apresoline) 20 mg IVPUSH Q4H PRN PRN Reason: Hypertension Hydromorphone HCl (Dilaudid) 0.25 mg IVPUSH Q2H PRN PRN Reason: Pain (severe 7-10) Promethazine HCl 6.25 mg/ (Sodium Chloride) 50.25 mls @ 100 mls/hr IV Q6H PRN PRN Reason: Nausea/Vomiting Ceftriaxone Sodium 1 gm/ (Sodium Chloride) 100 mls @ 200 mls/hr IV Q24H [facility] Lorazepam (Ativan) 0.25 mg IV Q6H PRN PRN Reason: Anxiety Magnesium Oxide (Magnesium Oxide) 400 mg PO DAILY [facility] Magnesium Sulfate (Pharmacy To Dose - Magnesium Replacement) 0 dose .XX ASDIRECTED PRN PRN Reason: RX TO DOSE MAG Metoprolol Tartrate (Lopressor) 5 mg IVPUSH Q4H PRN PRN Reason: Tachycardia Metoprolol Tartrate (Lopressor) 50 mg PO BID [facility] Last Admin: 05/22/18 23:36 Dose: 50 mg Miscellaneous Information (Remove Patch) 1 ea TRDERM DAILY [facility] Multivitamins (Thera) 1 each PO DAILY [facility] Nicotine (Habitrol) 21 mg TRDERM DAILY PRN PRN Reason: Nicotine Dependence Ondansetron HCl (Zofran) 4 mg IV Q6H PRN PRN Reason: Nausea/Vomiting Rosuvastatin 40 Mg (Tab) 0 each PO DAILY [facility] Sertraline 100 Mg (Tab Ptom) 0 each PO DAILY [facility] Polyethylene Glycol (Miralax) 17 gm PO DAILY PRN PRN Reason: Constipation Potassium Chloride (Pharmacy To Dose - Potassium Replacement) 0 dose .XX ASDIRECTED PRN PRN Reason: RX TO DOSE K Saccharomyces Boulardii (Florastor) 250 mg PO DAILY [facility] Senna/Docusate Sodium (Senna Plus) 1 tab PO BID PRN PRN Reason: Constipation Sodium Chloride (Saline Flush) 10 ml FLUSH ASDIRECTED PRN PRN Reason: Keep Vein Open Last Admin: 05/22/18 17:41 Dose: 10 ml Sodium Chloride (Saline Flush) 10 ml FLUSH ONETIME PRN PRN Reason: IV FLUSH Last Admin: 05/22/18 18:20 Dose: 10 ml Spironolactone (Aldactone) 25 mg PO DAILY [facility] Temazepam (Restoril) 7.5 mg PO BEDTIME PRN PRN Reason: Sleep Assessment/Plan Comment:: Assessment/Plan: Acute: S/p Fall - Risk factors: Gait Instability and Impaired Hearing - Prodromal symptom of dizziness - Admit to not using her walker or cane all the time - All imaging studies showed no acute abnormal findings - Orthostasis not done in ED - PT/OT consult - 2D echo to assess cardiac function: she carries a hx/o (maybe the cause of her dizziness) UTI - UA highly suggestive for UTI - Asymptomatic - Afebrile with Mild Leukocytosis - Received IV Rocephin in ED--> will continue Malignant Hypertension - Carries a hx/o HTN - She states she has not been taking some of medications for a few days now - Documented BP of 203/96 mmHg on admission - Continue home meds - PRN anti-hypertensive medications Elevated ProBNP Level - Carries a hx/o HF with unknown EF (no 2D echo in EMR) - ProBNP level 3384 - She is not volume overloaded - 2D echo to assess cardiac function--> maybe the cause of her dizziness Mildly Elevated CPK Level - 661 --> S/p Fall - Will monitor renal function Gait Instability - She has assistive device at home but does not use it all the time - PT/OT eval - Advised the importance of treatment adherence Medical Non-Adherence S/p Dizziness Chronic: Impaired hearing HF with Unknown EF HTN HLD CABG x 3 S/p NM Aortic Stenosis Gout Hx/o Hernia Depression Plan: Admit to [facility] Resume Home Meds Routine AM Labs PT/OT consult Fall Precautions SW/CM for d/c planning Code status: 1 at this point
[2018-05-23] MEDS ORDERED: Magnesium Oxide 400 MG Tab PO ONE (09:45)
[2018-05-23] MEDS: Metoprolol Tartrate 50 MG Tab PO SCH ×2 (10:08→21:01)
[2018-05-23] MEDS: Furosemide 40 MG Tab **PTOM PO SCH (10:08)
[2018-05-23] MEDS: Spironolactone 25 MG Tab PO SCH (10:08)
[2018-05-23] MEDS: Clopidogrel 75 MG Tab PO SCH (10:09)
[2018-05-23] MEDS: amLODIPine 5 MG Tab PO SCH (10:09)
[2018-05-23] MEDS: Saccharomyces Boulardii (Probiotic) 250 MG Cap PO SCH (10:10)
[2018-05-23] MEDS: Multivitamins,Therapeutic Tab PO SCH (10:12)
[2018-05-23] MEDS: SERTRALINE 100 MG PO SCH (10:15)
[2018-05-23] MEDS: ROSUVASTATIN 40 MG TAB PO SCH (10:15)
[2018-05-23] MEDS: Magnesium Oxide 400 MG Tab PO SCH (10:16)
[2018-05-23] MEDS: hydrALAZINE 20 MG/ML SDV IVPUSH PRN ×2 (12:47→21:07)
[2018-05-23] MEDS: cefTRIAXone 1 GM in Sodium Chloride 0.9% 100 ML IV SCH (17:10)
[2018-05-23] MEDS: Acetaminophen 325 MG Tab PO PRN (21:00)
[2018-05-24] MEDS: Saccharomyces Boulardii (Probiotic) 250 MG Cap PO SCH (10:59)
[2018-05-24] MEDS: Magnesium Oxide 400 MG Tab PO SCH (11:00)
[2018-05-24] MEDS: Multivitamins,Therapeutic Tab PO SCH (11:00)
[2018-05-24] MEDS: Spironolactone 25 MG Tab PO SCH (11:00)
[2018-05-24] MEDS: Metoprolol Tartrate 50 MG Tab PO SCH ×2 (11:01→21:03)
[2018-05-24] MEDS: amLODIPine 5 MG Tab PO SCH (11:02)
[2018-05-24] MEDS: Clopidogrel 75 MG Tab PO SCH (11:02)
[2018-05-24] MEDS: SERTRALINE 100 MG PO SCH (11:03)
[2018-05-24] MEDS: ROSUVASTATIN 40 MG TAB PO SCH (11:03)
[2018-05-24] MEDS: Furosemide 40 MG Tab **PTOM PO SCH (11:13)
[2018-05-24] MEDS: Sodium Chloride 0.45% 1,000 ML IV SCH (11:21)
--- NOTE | 2018-05-24 12:43 | PCM.PN ---
- General Info Date of Service: 05/24/18 Functional Status: Reports: Pain Controlled, Tolerating Diet, Ambulating, Urinating - Review of Systems General: Reports: Weakness HEENT: Reports: No Symptoms Pulmonary: Reports: No Symptoms Cardiovascular: Reports: No Symptoms Gastrointestinal: Reports: Diarrhea Genitourinary: Reports: No Symptoms Musculoskeletal: Reports: No Symptoms Skin: Reports: No Symptoms Neurological: Reports: No Symptoms Psychiatric: Reports: No Symptoms - Patient Data Vitals - Most Recent: Last Vital Signs Temp 37.6 C 05/24/18 08:47 Pulse 71 05/24/18 11:01 Resp 18 05/24/18 08:47 BP 131/79 05/24/18 11:02 Pulse Ox 96 05/24/18 08:47 Weight - Most Recent: 58.712 kg I&O - Last 24 Hours: Intake & Output 05/23/18 05/24/18 05/24/18 22:59 06:59 14:59 Intake Total 890 200 180 Output Total 500 Balance 390 200 180 Lab Results Last 24 Hours: Laboratory Results - last 24 hr 05/23/18 05/23/18 05/24/18 Range/Units 07:47 14:03 04:55 WBC 8.15 (3.98-10.04) K/mm3 RBC 3.36 L (3.98-5.22) M/mm3 Hgb 10.4 L (11.2-15.7) gm/L Hct 31.2 L (34.1-44.9) % MCV 92.9 (79.4-94.8) fl MCH 31.0 (25.6-32.2) pg MCHC 33.3 (32.2-35.5) g/dl RDW Std Deviation 46.1 (36.4-46.3) fL Plt Count 178 L (182-369) K/mm3 MPV 9.5 (9.4-12.3) fl Neut % (Auto) 67.6 (34.0-71.1) % Lymph % (Auto) 18.8 L (19.3-51.7) % Stone % (Auto) 10.1 (4.7-12.5) % Eos % (Auto) 3.2 (0.7-5.8) Baso % (Auto) 0.2 (0.1-1.2) % Neut # (Auto) 5.51 (1.56-6.13) K/mm3 Lymph # (Auto) 1.53 (1.18-3.74) K/mm3 Stone # (Auto) 0.82 H (0.24-0.36) K/mm3 Eos # (Auto) 0.26 (0.04-0.36) K/mm3 Baso # (Auto) 0.02 (0.01-0.08) K/mm3 Sodium (136-145) mEq/L Potassium (3.5-5.1) mEq/L Chloride (98-107) mEq/L Carbon Dioxide (21-32) mEq/L Anion Gap (5-15) BUN (7-18) mg/dL Creatinine (0.55-1.02) mg/dL Est Cr Clr Drug Dosing Estimated GFR (MDRD) (>60) mL/min BUN/Creatinine Ratio (14-18) Glucose (83-115) mg/dL Calcium (8.5-10.1) mg/dL Magnesium (1.8-2.4) mg/dl C-Reactive Protein (<1.0) mg/dL NT-Pro-B Natriuret Pep (0-450) pg/mL MRSA (PCR) Cancelled Negative 05/24/18 05/24/18 Range/Units 04:55 04:55 WBC (3.98-10.04) K/mm3 RBC (3.98-5.22) M/mm3 Hgb (11.2-15.7) gm/L Hct (34.1-44.9) % MCV (79.4-94.8) fl MCH (25.6-32.2) pg MCHC (32.2-35.5) g/dl RDW Std Deviation (36.4-46.3) fL Plt Count (182-369) K/mm3 MPV (9.4-12.3) fl Neut % (Auto) (34.0-71.1) % Lymph % (Auto) (19.3-51.7) % Stone % (Auto) (4.7-12.5) % Eos % (Auto) (0.7-5.8) Baso % (Auto) (0.1-1.2) % Neut # (Auto) (1.56-6.13) K/mm3 Lymph # (Auto) (1.18-3.74) K/mm3 Stone # (Auto) (0.24-0.36) K/mm3 Eos # (Auto) (0.04-0.36) K/mm3 Baso # (Auto) (0.01-0.08) K/mm3 Sodium 139 (136-145) mEq/L Potassium 3.5 (3.5-5.1) mEq/L Chloride 104 (98-107) mEq/L Carbon Dioxide 24 (21-32) mEq/L Anion Gap 14.5 (5-15) BUN 30 H (7-18) mg/dL Creatinine 1.5 H (0.55-1.02) mg/dL Est Cr Clr Drug Dosing TNP Estimated GFR (MDRD) 33 (>60) mL/min BUN/Creatinine Ratio 20.0 H (14-18) Glucose 94 (83-115) mg/dL Calcium 9.0 (8.5-10.1) mg/dL Magnesium 1.9 (1.8-2.4) mg/dl C-Reactive Protein 3.1 H* (<1.0) mg/dL NT-Pro-B Natriuret Pep 2991 H (0-450) pg/mL MRSA (PCR) Myles Results Last 24 Hours: Microbiology 05/22/18 17:20 Urine Culture - Final Urine, Quick Cath (In-Out) Staphylococcus Aureus 05/22/18 23:50 MRSA Surveillance Culture - Final Nasal/Axilla/Groin NO MRSA ISOLATED 05/22/18 21:30 Aerobic Blood Culture - Preliminary Blood - Venous NO GROWTH AFTER 1 DAY Anaerobic Blood Culture - Preliminary NO GROWTH AFTER 1 DAY 05/22/18 21:40 Aerobic Blood Culture - Preliminary Blood - Venous - Lab Draw NO GROWTH AFTER 1 DAY Anaerobic Blood Culture - Preliminary NO GROWTH AFTER 1 DAY Med Orders - Current: Current Medications Acetaminophen (Tylenol) 650 mg PO Q4H PRN PRN Reason: Pain (Mild 1-3)/fever Last Admin: 05/23/18 21:00 Dose: 650 mg Acetaminophen/Codeine Phosphate (Tylenol With Codeine No.3 300mg/30mg) 1 tab PO Q4H PRN PRN Reason: Pain Hydrocodone Bitart/Acetaminophen ([place] 325-5 Mg) 1 tab PO Q4H PRN PRN Reason: Pain (moderate 4-6) Albuterol/Ipratropium (Duoneb 3.0-0.5 Mg/3 Ml) 3 ml NEB Q4H PRN PRN Reason: Shortness Of Breath/wheezing Amlodipine Besylate (Norvasc) 5 mg PO DAILY [facility] Last Admin: 05/24/18 11:02 Dose: 5 mg Bisacodyl (Dulcolax) 5 mg PO DAILY PRN PRN Reason: Constipation Clopidogrel Bisulfate (Plavix) 75 mg PO DAILY [facility] Last Admin: 05/24/18 11:02 Dose: 75 mg Docusate Sodium (Colace) 100 mg PO BID PRN PRN Reason: Constipation Hydralazine HCl (Apresoline) 20 mg IVPUSH Q6H PRN PRN Reason: Hypertension Hydromorphone HCl (Dilaudid) 0.25 mg IVPUSH Q2H PRN PRN Reason: Pain (severe 7-10) Promethazine HCl 6.25 mg/ (Sodium Chloride) 50.25 mls @ 100 mls/hr IV Q6H PRN PRN Reason: Nausea/Vomiting Ceftriaxone Sodium 1 gm/ (Sodium Chloride) 100 mls @ 200 mls/hr IV Q24H [facility] Last Admin: 05/23/18 17:10 Dose: 200 mls/hr Sodium Chloride (Sodium Chloride 0.45%) 1,000 mls @ 75 mls/hr IV ASDIRECTED [facility] Last Admin: 05/24/18 11:21 Dose: 75 mls/hr Lorazepam (Ativan) 0.25 mg IV Q6H PRN PRN Reason: Anxiety Magnesium Oxide (Magnesium Oxide) 400 mg PO DAILY [facility] Last Admin: 05/24/18 11:00 Dose: 400 mg Metoprolol Tartrate (Lopressor) 5 mg IVPUSH Q4H PRN PRN Reason: Tachycardia Metoprolol Tartrate (Lopressor) 50 mg PO BID [facility] Last Admin: 05/24/18 11:01 Dose: 50 mg Miscellaneous Information (Remove Patch) 1 ea TRDERM DAILY [facility] Last Admin: 05/24/18 11:04 Dose: Not Given Multivitamins (Thera) 1 each PO DAILY [facility] Last Admin: 05/24/18 11:00 Dose: 1 each Nicotine (Habitrol) 21 mg TRDERM DAILY PRN PRN Reason: Nicotine Dependence Ondansetron HCl (Zofran) 4 mg IV Q6H PRN PRN Reason: Nausea/Vomiting Rosuvastatin 40 Mg (Tab) 0 each PO DAILY [facility] Last Admin: 05/24/18 11:03 Dose: 1 each Sertraline 100 Mg (Tab Ptom) 0 each PO DAILY [facility] Last Admin: 05/24/18 11:03 Dose: 1 each Polyethylene Glycol (Miralax) 17 gm PO DAILY PRN PRN Reason: Constipation Saccharomyces Boulardii (Florastor) 250 mg PO DAILY [facility] Last Admin: 05/24/18 10:59 Dose: 250 mg Senna/Docusate Sodium (Senna Plus) 1 tab PO BID PRN PRN Reason: Constipation Sodium Chloride (Saline Flush) 10 ml FLUSH ASDIRECTED PRN PRN Reason: Keep Vein Open Last Admin: 05/22/18 17:41 Dose: 10 ml Spironolactone (Aldactone) 25 mg PO DAILY [facility] Last Admin: 05/24/18 11:00 Dose: 25 mg Temazepam (Restoril) 7.5 mg PO BEDTIME PRN PRN Reason: Sleep Discontinued Medications Furosemide (Lasix) 40 mg PO DAILY [facility] Last Admin: 05/24/18 11:13 Dose: Not Given Hydralazine HCl (Apresoline) 20 mg IVPUSH Q4H PRN PRN Reason: Hypertension Last Admin: 05/23/18 21:07 Dose: 20 mg Sodium Chloride (Normal Saline) 1,000 mls @ 500 mls/hr IV ONETIME ONE Stop: 05/22/18 19:23 Last Admin: 05/22/18 17:40 Dose: 500 mls/hr Ceftriaxone Sodium 2 gm/ (Sodium Chloride) 100 mls @ 100 mls/hr IV ONETIME ONE Stop: 05/22/18 20:08 Last Admin: 05/22/18 19:20 Dose: 100 mls/hr Iopamidol (Isovue-300 (61%)) 100 ml IVPUSH ONETIME ONE Stop: 05/22/18 17:56 Last Admin: 05/22/18 18:20 Dose: 100 ml Magnesium Oxide (Magnesium Oxide) 400 mg PO ONETIME ONE Stop: 05/22/18 23:39 Last Admin: 05/22/18 23:55 Dose: Not Given Magnesium Oxide (Magnesium Oxide) 400 mg PO ONETIME ONE Stop: 05/23/18 09:46 Last Admin: 05/23/18 10:15 Dose: 400 mg Magnesium Sulfate (Pharmacy To Dose - Magnesium Replacement) 0 dose .XX ASDIRECTED PRN PRN Reason: RX TO DOSE MAG Potassium Chloride (Klor-Con M20) 40 meq PO DAILY [facility] Potassium Chloride (Pharmacy To Dose - Potassium Replacement) 0 dose .XX ASDIRECTED PRN PRN Reason: RX TO DOSE K Sodium Chloride (Saline Flush) 10 ml FLUSH ONETIME PRN PRN Reason: IV FLUSH Last Admin: 05/22/18 18:20 Dose: 10 ml - Exam Quality Assessment: DVT Prophylaxis General: Alert, Oriented, Cooperative, No Acute Distress HEENT: Pupils Equal, Pupils Reactive, EOMI Neck: Supple, Trachea Midline, No JVD Lungs: Normal Respiratory Effort Cardiovascular: Regular Rate, Regular Rhythm GI/Abdominal Exam: Normal Bowel Sounds, Soft, Non-Tender, No Organomegaly, No Distention (Female) Exam: Deferred Back Exam: Normal Inspection Extremities: Non-Tender, No Pedal Edema, Normal Capillary Refill Skin: Warm Neurological: No New Focal Deficit, Normal Gait, Normal Speech Psy/Mental Status: Alert, Normal Affect, Normal Mood - Problem List & Annotations (1) Dehydration SNOMED Code(s): 38907201 Code(s): E86.0 - DEHYDRATION Status: Acute Current Visit: Yes (2) Elevated CPK SNOMED Code(s): 057238495 Code(s): R74.8 - ABNORMAL LEVELS OF OTHER SERUM ENZYMES Status: Acute Current Visit: Yes (3) Fall SNOMED Code(s): 8999867, 386022353 Code(s): W19.XXXA - UNSPECIFIED FALL, INITIAL ENCOUNTER Status: Acute Current Visit: Yes (4) UTI (urinary tract infection) SNOMED Code(s): 59685055 Code(s): N39.0 - URINARY TRACT INFECTION, SITE NOT SPECIFIED Status: Acute Current Visit: Yes (5) CAD (coronary artery disease) SNOMED Code(s): 09306336 Code(s): I25.10 - ATHSCL HEART DISEASE OF [place] CORONARY ARTERY W/O ANG PCTRS Status: Chronic Current Visit: Yes (6) Aortic stenosis SNOMED Code(s): 56341203 Code(s): I35.0 - NONRHEUMATIC AORTIC (VALVE) STENOSIS Status: Chronic Current Visit: Yes (7) Depression SNOMED Code(s): 31979092 Code(s): F32.9 - MAJOR DEPRESSIVE DISORDER, SINGLE EPISODE, UNSPECIFIED Status: Chronic Current Visit: Yes (8) Hx of CABG SNOMED Code(s): 967815133, 578261039 Code(s): Z95.1 - PRESENCE OF AORTOCORONARY BYPASS GRAFT Status: Acute Current Visit: Yes - Problem List Review Problem List Initiated/Reviewed/Updated: Yes - My Orders Last 24 Hours: My Active Orders 05/24/18 10:00 Sodium Chloride 0.45% 1,000 ml IV ASDIRECTED 05/24/18 12:18 hydrALAZINE [Apresoline] 20 mg IVPUSH Q6H PRN 05/24/18 12:23 Patient Status [ADT] Routine - Plan Plan:: Assessment/Plan: Acute: S/p Fall - Risk factors: Gait Instability and Impaired Hearing - Prodromal symptom of dizziness - Admit to not using her walker or cane all the time - All imaging studies showed no acute abnormal findings - Orthostasis not done in ED - PT/OT consult - 2D echo to assess cardiac function: she carries a hx/o (maybe the cause of her dizziness) UTI - UA highly suggestive for UTI, await UC. - Asymptomatic - Afebrile with Mild Leukocytosis - Received IV Rocephin in ED--> will continue Malignant Hypertension - Carries a hx/o HTN - She states she has not been taking some of medications for a few days now - Documented BP of 203/96 mmHg on admission - Continue home meds - PRN anti-hypertensive medications Elevated ProBNP Level - Carries a hx/o HF with unknown EF (no 2D echo in EMR) - ProBNP level 3384 - She is not volume overloaded - 2D echo to assess cardiac function--> maybe the cause of her dizziness Mildly Elevated CPK Level - 661 --> S/p Fall - Will monitor renal function Gait Instability - She has assistive device at home but does not use it all the time - PT/OT eval - Advised the importance of treatment adherence Medical Non-Adherence S/p Dizziness Chronic: Impaired hearing HF with Unknown EF HTN HLD CABG x 3 S/p [place] Aortic Stenosis Gout Hx/o Hernia Depression Plan: MSP Resume Home Meds Routine AM Labs PT/OT consult Fall Precautions SW/CM for d/c planning Code status: 1 at this point
[2018-05-24] MEDS: Acetaminophen 325 MG Tab PO PRN (14:39)
[2018-05-24] MEDS: cefTRIAXone 1 GM in Sodium Chloride 0.9% 100 ML IV SCH (17:10)
[2018-05-24] MEDS: hydrALAZINE 20 MG/ML SDV IVPUSH PRN (18:38)
[2018-05-24] MEDS ORDERED: Potassium Chloride 20 MEQ Tab.ER PO ONE (20:30)
[2018-05-24] MEDS: Temazepam 7.5 MG Cap PO PRN (21:04)
[2018-05-25] MEDS: Sodium Chloride 0.45% 1,000 ML IV SCH ×2 (01:07→14:18)
[2018-05-25] MEDS: Multivitamins,Therapeutic Tab PO SCH (09:25)
[2018-05-25] MEDS: Rosuvastatin 10 MG Tab PO SCH (09:25)
[2018-05-25] MEDS: Sertraline 50 MG Tab PO SCH (09:25)
[2018-05-25] MEDS: Magnesium Oxide 400 MG Tab PO SCH (09:26)
[2018-05-25] MEDS: Metoprolol Tartrate 50 MG Tab PO SCH ×2 (09:26→20:44)
[2018-05-25] MEDS: Spironolactone 25 MG Tab PO SCH (09:26)
[2018-05-25] MEDS: Clopidogrel 75 MG Tab PO SCH (09:26)
[2018-05-25] MEDS: Saccharomyces Boulardii (Probiotic) 250 MG Cap PO SCH (09:26)
[2018-05-25] MEDS: amLODIPine 5 MG Tab PO SCH (09:26)
[2018-05-25] MEDS: Levofloxacin/Dextrose 5%-Water 750 MG in Premix Bag 1 BAG IV SCH (12:56)
--- NOTE | 2018-05-25 17:41 | PCM.PN ---
- General Info Date of Service: 05/25/18 Subjective Update: Chronic diarrhea, will send lab for C Diff; DC postponed with change in ATB to Levoquin based on sensitivity. Functional Status: Reports: Tolerating Diet, Ambulating, Urinating - Review of Systems General: Reports: Weakness HEENT: Reports: No Symptoms Pulmonary: Reports: No Symptoms Cardiovascular: Reports: No Symptoms Gastrointestinal: Reports: No Symptoms Genitourinary: Reports: No Symptoms Musculoskeletal: Reports: No Symptoms Skin: Reports: No Symptoms Neurological: Reports: No Symptoms Psychiatric: Reports: No Symptoms - Patient Data Vitals - Most Recent: Last Vital Signs Temp 36.8 C 05/25/18 15:27 Pulse 54 L 05/25/18 15:27 Resp 16 05/25/18 15:27 BP 161/60 H 05/25/18 15:27 Pulse Ox 97 05/25/18 15:27 Weight - Most Recent: 58.712 kg I&O - Last 24 Hours: Intake & Output 05/25/18 05/25/18 05/25/18 06:59 14:59 22:59 Intake Total 1350 180 800 Output Total 1050 350 Balance 300 180 450 Lab Results Last 24 Hours: Laboratory Results - last 24 hr 05/25/18 05/25/18 05/25/18 Range/Units 05:55 05:55 05:55 WBC 6.49 (3.98-10.04) K/mm3 RBC 3.22 L (3.98-5.22) M/mm3 Hgb 9.7 L (11.2-15.7) gm/L Hct 30.0 L (34.1-44.9) % MCV 93.2 (79.4-94.8) fl MCH 30.1 (25.6-32.2) pg MCHC 32.3 (32.2-35.5) g/dl RDW Std Deviation 46.4 H (36.4-46.3) fL Plt Count 182 (182-369) K/mm3 MPV 9.3 L (9.4-12.3) fl Neut % (Auto) 65.5 (34.0-71.1) % Lymph % (Auto) 19.6 (19.3-51.7) % [place] % (Auto) 11.1 (4.7-12.5) % Eos % (Auto) 3.2 (0.7-5.8) Baso % (Auto) 0.3 (0.1-1.2) % Neut # (Auto) 4.25 (1.56-6.13) K/mm3 Lymph # (Auto) 1.27 (1.18-3.74) K/mm3 [place] # (Auto) 0.72 H (0.24-0.36) K/mm3 Eos # (Auto) 0.21 (0.04-0.36) K/mm3 Baso # (Auto) 0.02 (0.01-0.08) K/mm3 Sodium 138 (136-145) mEq/L Potassium 4.6 (3.5-5.1) mEq/L Chloride 108 H (98-107) mEq/L Carbon Dioxide 23 (21-32) mEq/L Anion Gap 11.6 (5-15) BUN 21 H (7-18) mg/dL Creatinine 1.2 H (0.55-1.02) mg/dL Est Cr Clr Drug Dosing TNP Estimated GFR (MDRD) 43 (>60) mL/min BUN/Creatinine Ratio 17.5 (14-18) Glucose 103 (83-115) mg/dL Calcium 8.8 (8.5-10.1) mg/dL Magnesium 2.0 (1.8-2.4) mg/dl C-Reactive Protein 3.0 H* (<1.0) mg/dL NT-Pro-B Natriuret Pep 4605 H (0-450) pg/mL Myles Results Last 24 Hours: Microbiology 05/22/18 21:30 Aerobic Blood Culture - Preliminary Blood - Venous NO GROWTH AFTER 2 DAYS Anaerobic Blood Culture - Preliminary NO GROWTH AFTER 2 DAYS 05/22/18 21:40 Aerobic Blood Culture - Preliminary Blood - Venous - Lab Draw NO GROWTH AFTER 2 DAYS Anaerobic Blood Culture - Preliminary NO GROWTH AFTER 2 DAYS Med Orders - Current: Current Medications Acetaminophen (Tylenol) 650 mg PO Q4H PRN PRN Reason: Pain (Mild 1-3)/fever Last Admin: 05/24/18 14:39 Dose: 650 mg Acetaminophen/Codeine Phosphate (Tylenol With Codeine No.3 300mg/30mg) 1 tab PO Q4H PRN PRN Reason: Pain Hydrocodone Bitart/Acetaminophen ([place] 325-5 Mg) 1 tab PO Q4H PRN PRN Reason: Pain (moderate 4-6) Albuterol/Ipratropium (Duoneb 3.0-0.5 Mg/3 Ml) 3 ml NEB Q4H PRN PRN Reason: Shortness Of Breath/wheezing Amlodipine Besylate (Norvasc) 5 mg PO DAILY [facility] Last Admin: 05/25/18 09:26 Dose: 5 mg Bisacodyl (Dulcolax) 5 mg PO DAILY PRN PRN Reason: Constipation Clopidogrel Bisulfate (Plavix) 75 mg PO DAILY [facility] Last Admin: 05/25/18 09:26 Dose: 75 mg Docusate Sodium (Colace) 100 mg PO BID PRN PRN Reason: Constipation Furosemide (Lasix) 20 mg IVPUSH ONETIME ONE Stop: 05/26/18 06:01 Hydralazine HCl (Apresoline) 20 mg IVPUSH Q6H PRN PRN Reason: Hypertension Last Admin: 05/24/18 18:38 Dose: 20 mg Hydromorphone HCl (Dilaudid) 0.25 mg IVPUSH Q2H PRN PRN Reason: Pain (severe 7-10) Promethazine HCl 6.25 mg/ (Sodium Chloride) 50.25 mls @ 100 mls/hr IV Q6H PRN PRN Reason: Nausea/Vomiting Levofloxacin/Dextrose 750 mg/ (Premix) 150 mls @ 100 mls/hr IV Q48H [facility] Last Admin: 05/25/18 12:56 Dose: 100 mls/hr Lorazepam (Ativan) 0.25 mg IV Q6H PRN PRN Reason: Anxiety Magnesium Oxide (Magnesium Oxide) 400 mg PO DAILY [facility] Last Admin: 05/25/18 09:26 Dose: 400 mg Metoprolol Tartrate (Lopressor) 5 mg IVPUSH Q4H PRN PRN Reason: Tachycardia Metoprolol Tartrate (Lopressor) 50 mg PO BID [facility] Last Admin: 05/25/18 09:26 Dose: 50 mg Miscellaneous Information (Remove Patch) 1 ea TRDERM DAILY [facility] Last Admin: 05/25/18 09:14 Dose: Not Given Multivitamins (Thera) 1 each PO DAILY [facility] Last Admin: 05/25/18 09:25 Dose: 1 each Nicotine (Habitrol) 21 mg TRDERM DAILY PRN PRN Reason: Nicotine Dependence Ondansetron HCl (Zofran) 4 mg IV Q6H PRN PRN Reason: Nausea/Vomiting Polyethylene Glycol (Miralax) 17 gm PO DAILY PRN PRN Reason: Constipation Rosuvastatin Calcium (Crestor) 40 mg PO DAILY [facility] Last Admin: 05/25/18 09:25 Dose: 40 mg Saccharomyces Boulardii (Florastor) 250 mg PO DAILY [facility] Last Admin: 05/25/18 09:26 Dose: 250 mg Senna/Docusate Sodium (Senna Plus) 1 tab PO BID PRN PRN Reason: Constipation Sertraline HCl (Zoloft) 100 mg PO DAILY [facility] Last Admin: 05/25/18 09:25 Dose: 100 mg Sodium Chloride (Saline Flush) 10 ml FLUSH ASDIRECTED PRN PRN Reason: Keep Vein Open Last Admin: 05/22/18 17:41 Dose: 10 ml Spironolactone (Aldactone) 25 mg PO DAILY [facility] Last Admin: 05/25/18 09:26 Dose: 25 mg Temazepam (Restoril) 7.5 mg PO BEDTIME PRN PRN Reason: Sleep Last Admin: 05/24/18 21:04 Dose: 7.5 mg Discontinued Medications Furosemide (Lasix) 40 mg PO DAILY [facility] Last Admin: 05/24/18 11:13 Dose: Not Given Hydralazine HCl (Apresoline) 20 mg IVPUSH Q4H PRN PRN Reason: Hypertension Last Admin: 05/23/18 21:07 Dose: 20 mg Sodium Chloride (Normal Saline) 1,000 mls @ 500 mls/hr IV ONETIME ONE Stop: 05/22/18 19:23 Last Admin: 05/22/18 17:40 Dose: 500 mls/hr Ceftriaxone Sodium 2 gm/ (Sodium Chloride) 100 mls @ 100 mls/hr IV ONETIME ONE Stop: 05/22/18 20:08 Last Admin: 05/22/18 19:20 Dose: 100 mls/hr Ceftriaxone Sodium 1 gm/ (Sodium Chloride) 100 mls @ 200 mls/hr IV Q24H [facility] Last Admin: 05/24/18 17:10 Dose: 200 mls/hr Sodium Chloride (Sodium Chloride 0.45%) 1,000 mls @ 75 mls/hr IV ASDIRECTED [facility] Last Admin: 05/25/18 14:18 Dose: 75 mls/hr Iopamidol (Isovue-300 (61%)) 100 ml IVPUSH ONETIME ONE Stop: 05/22/18 17:56 Last Admin: 05/22/18 18:20 Dose: 100 ml Magnesium Oxide (Magnesium Oxide) 400 mg PO ONETIME ONE Stop: 05/22/18 23:39 Last Admin: 05/22/18 23:55 Dose: Not Given Magnesium Oxide (Magnesium Oxide) 400 mg PO ONETIME ONE Stop: 05/23/18 09:46 Last Admin: 05/23/18 10:15 Dose: 400 mg Magnesium Sulfate (Pharmacy To Dose - Magnesium Replacement) 0 dose .XX ASDIRECTED PRN PRN Reason: RX TO DOSE MAG Rosuvastatin 40 Mg (Tab) 0 each PO DAILY [facility] Last Admin: 05/24/18 11:03 Dose: 1 each Sertraline 100 Mg (Tab Ptom) 0 each PO DAILY [facility] Last Admin: 05/24/18 11:03 Dose: 1 each Potassium Chloride (Klor-Con M20) 40 meq PO DAILY [facility] Potassium Chloride (Pharmacy To Dose - Potassium Replacement) 0 dose .XX ASDIRECTED PRN PRN Reason: RX TO DOSE K Potassium Chloride (Klor-Con M20) 40 meq PO ONETIME ONE Stop: 05/24/18 20:31 Last Admin: 05/24/18 21:03 Dose: 40 meq Sodium Chloride (Saline Flush) 10 ml FLUSH ONETIME PRN PRN Reason: IV FLUSH Last Admin: 05/22/18 18:20 Dose: 10 ml - Exam Quality Assessment: DVT Prophylaxis General: Alert, Oriented, Cooperative, No Acute Distress HEENT: Pupils Equal, Pupils Reactive, EOMI Neck: Trachea Midline, No JVD Lungs: Normal Respiratory Effort Cardiovascular: Regular Rate GI/Abdominal Exam: Normal Bowel Sounds, Soft, Non-Tender, No Organomegaly, No Distention (Female) Exam: Deferred Back Exam: Normal Inspection Extremities: Non-Tender, Normal Capillary Refill Skin: Warm Neurological: No New Focal Deficit, Normal Speech Psy/Mental Status: Alert, Normal Affect, Normal Mood - Problem List & Annotations (1) Dehydration SNOMED Code(s): 56871193 Code(s): E86.0 - DEHYDRATION Status: Acute Current Visit: Yes (2) Elevated CPK SNOMED Code(s): 742954829 Code(s): R74.8 - ABNORMAL LEVELS OF OTHER SERUM ENZYMES Status: Acute Current Visit: Yes (3) Fall SNOMED Code(s): 6728978, 540229932 Code(s): W19.XXXA - UNSPECIFIED FALL, INITIAL ENCOUNTER Status: Acute Current Visit: Yes (4) UTI (urinary tract infection) SNOMED Code(s): 73841500 Code(s): N39.0 - URINARY TRACT INFECTION, SITE NOT SPECIFIED Status: Acute Current Visit: Yes (5) CAD (coronary artery disease) SNOMED Code(s): 87892083 Code(s): I25.10 - ATHSCL HEART DISEASE OF [place] CORONARY ARTERY W/O ANG PCTRS Status: Chronic Current Visit: Yes (6) Aortic stenosis SNOMED Code(s): 54253518 Code(s): I35.0 - NONRHEUMATIC AORTIC (VALVE) STENOSIS Status: Chronic Current Visit: Yes (7) Depression SNOMED Code(s): 17233310 Code(s): F32.9 - MAJOR DEPRESSIVE DISORDER, SINGLE EPISODE, UNSPECIFIED Status: Chronic Current Visit: Yes (8) Hx of CABG SNOMED Code(s): 345334270, 077814091 Code(s): Z95.1 - PRESENCE OF AORTOCORONARY BYPASS GRAFT Status: Acute Current Visit: Yes - Problem List Review Problem List Initiated/Reviewed/Updated: Yes - My Orders Last 24 Hours: My Active Orders 05/25/18 12:30 Levofloxacin/Dextrose 5%-Water [Levaquin in D5W 750 MG/150 ML] 750 mg Premix Bag 1 bag IV Q48H 05/25/18 16:19 C DIFFICILE BY PCR W/NAP1 [MOLEC] Routine 05/26/18 06:00 Furosemide [Lasix] 20 mg IVPUSH ONETIME ONE - Plan Plan:: Assessment/Plan: Acute: S/p Fall - Risk factors: Gait Instability and Impaired Hearing - Prodromal symptom of dizziness - Admit to not using her walker or cane all the time - All imaging studies showed no acute abnormal findings - Orthostasis not done in ED - PT/OT consult - 2D echo to assess cardiac function: she carries a hx/o (maybe the cause of her dizziness) UTI - UA highly suggestive for UTI, await UC. - Asymptomatic - Afebrile with Mild Leukocytosis - Received IV Rocephin in ED--> will continue Malignant Hypertension - Carries a hx/o HTN - She states she has not been taking some of medications for a few days now - Documented BP of 203/96 mmHg on admission - Continue home meds - PRN anti-hypertensive medications Elevated ProBNP Level - Carries a hx/o HF with unknown EF (no 2D echo in EMR) - ProBNP level 3384 - She is not volume overloaded - 2D echo to assess cardiac function--> maybe the cause of her dizziness Mildly Elevated CPK Level - 661 --> S/p Fall - Will monitor renal function Gait Instability - She has assistive device at home but does not use it all the time - PT/OT eval - Advised the importance of treatment adherence Medical Non-Adherence S/p Dizziness Chronic: Impaired hearing HF with Unknown EF HTN HLD CABG x 3 S/p MO Aortic Stenosis Gout Hx/o Hernia Depression Plan: MSP Resume Home Meds Routine AM Labs PT/OT consult Fall Precautions SW/CM for d/c planning Code status: 1 at this point LOS> 96 hours with ARF, AUTI; DC planned 05/27/18.
[2018-05-25] MEDS: hydrALAZINE 20 MG/ML SDV IVPUSH PRN (19:23)
[2018-05-25] MEDS: Temazepam 7.5 MG Cap PO PRN (20:45)
[2018-05-26] MEDS ORDERED: Furosemide 20 MG/2 ML VIAL IVPUSH ONE (06:00)
[2018-05-26] MEDS: Spironolactone 25 MG Tab PO SCH (08:46)
[2018-05-26] MEDS: Magnesium Oxide 400 MG Tab PO SCH (08:46)
[2018-05-26] MEDS: Saccharomyces Boulardii (Probiotic) 250 MG Cap PO SCH (08:46)
[2018-05-26] MEDS: Multivitamins,Therapeutic Tab PO SCH (08:46)
[2018-05-26] MEDS: Rosuvastatin 10 MG Tab PO SCH (08:46)
[2018-05-26] MEDS: Sertraline 50 MG Tab PO SCH (08:46)
[2018-05-26] MEDS: Clopidogrel 75 MG Tab PO SCH (08:47)
[2018-05-26] MEDS: Metoprolol Tartrate 50 MG Tab PO SCH ×2 (08:52→20:22)
[2018-05-26] MEDS: amLODIPine 5 MG Tab PO SCH (08:52)
--- NOTE | 2018-05-26 14:40 | PCM.PN ---
- General Info Date of Service: 05/26/18 Functional Status: Reports: Pain Controlled, Tolerating Diet - Review of Systems General: Reports: Weakness HEENT: Reports: No Symptoms Pulmonary: Reports: No Symptoms Cardiovascular: Reports: No Symptoms Gastrointestinal: Reports: No Symptoms Genitourinary: Reports: No Symptoms Musculoskeletal: Reports: No Symptoms Skin: Reports: No Symptoms Neurological: Reports: No Symptoms Psychiatric: Reports: No Symptoms - Patient Data Vitals - Most Recent: Last Vital Signs Temp 36.6 C 05/26/18 08:52 Pulse 60 05/26/18 12:10 Resp 16 05/26/18 12:10 BP 144/59 H 05/26/18 12:10 Pulse Ox 98 05/26/18 12:10 Weight - Most Recent: 58.712 kg I&O - Last 24 Hours: Intake & Output 05/25/18 05/26/18 05/26/18 22:59 06:59 14:59 Intake Total 2370 300 240 Output Total 350 700 Balance 2020 -400 240 Lab Results Last 24 Hours: Laboratory Results - last 24 hr 05/26/18 05/26/18 05/26/18 Range/Units 00:28 05:38 05:38 WBC 6.14 (3.98-10.04) K/mm3 RBC 3.18 L (3.98-5.22) M/mm3 Hgb 9.9 L (11.2-15.7) gm/L Hct 30.1 L (34.1-44.9) % MCV 94.7 (79.4-94.8) fl MCH 31.1 (25.6-32.2) pg MCHC 32.9 (32.2-35.5) g/dl RDW Std Deviation 46.9 H (36.4-46.3) fL Plt Count 176 L (182-369) K/mm3 MPV 9.3 L (9.4-12.3) fl Neut % (Auto) 63.1 (34.0-71.1) % Lymph % (Auto) 19.9 (19.3-51.7) % [place] % (Auto) 12.1 (4.7-12.5) % Eos % (Auto) 4.4 (0.7-5.8) Baso % (Auto) 0.3 (0.1-1.2) % Neut # (Auto) 3.88 (1.56-6.13) K/mm3 Lymph # (Auto) 1.22 (1.18-3.74) K/mm3 [place] # (Auto) 0.74 H (0.24-0.36) K/mm3 Eos # (Auto) 0.27 (0.04-0.36) K/mm3 Baso # (Auto) 0.02 (0.01-0.08) K/mm3 Sodium 141 (136-145) mEq/L Potassium 4.4 (3.5-5.1) mEq/L Chloride 109 H (98-107) mEq/L Carbon Dioxide 23 (21-32) mEq/L Anion Gap 13.4 (5-15) BUN 20 H (7-18) mg/dL Creatinine 1.3 H (0.55-1.02) mg/dL Est Cr Clr Drug Dosing TNP Estimated GFR (MDRD) 40 (>60) mL/min BUN/Creatinine Ratio 15.4 (14-18) Glucose 96 (83-115) mg/dL Calcium 8.8 (8.5-10.1) mg/dL Magnesium 2.0 (1.8-2.4) mg/dl C-Reactive Protein 2.3 H* (<1.0) mg/dL NT-Pro-B Natriuret Pep (0-450) pg/mL C.difficile [id number] Presumptive negative C. difficile Tox (PCR) Negative 05/26/18 Range/Units 05:38 WBC (3.98-10.04) K/mm3 RBC (3.98-5.22) M/mm3 Hgb (11.2-15.7) gm/L Hct (34.1-44.9) % MCV (79.4-94.8) fl MCH (25.6-32.2) pg MCHC (32.2-35.5) g/dl RDW Std Deviation (36.4-46.3) fL Plt Count (182-369) K/mm3 MPV (9.4-12.3) fl Neut % (Auto) (34.0-71.1) % Lymph % (Auto) (19.3-51.7) % [place] % (Auto) (4.7-12.5) % Eos % (Auto) (0.7-5.8) Baso % (Auto) (0.1-1.2) % Neut # (Auto) (1.56-6.13) K/mm3 Lymph # (Auto) (1.18-3.74) K/mm3 [place] # (Auto) (0.24-0.36) K/mm3 Eos # (Auto) (0.04-0.36) K/mm3 Baso # (Auto) (0.01-0.08) K/mm3 Sodium (136-145) mEq/L Potassium (3.5-5.1) mEq/L Chloride (98-107) mEq/L Carbon Dioxide (21-32) mEq/L Anion Gap (5-15) BUN (7-18) mg/dL Creatinine (0.55-1.02) mg/dL Est Cr Clr Drug Dosing Estimated GFR (MDRD) (>60) mL/min BUN/Creatinine Ratio (14-18) Glucose (83-115) mg/dL Calcium (8.5-10.1) mg/dL Magnesium (1.8-2.4) mg/dl C-Reactive Protein (<1.0) mg/dL NT-Pro-B Natriuret Pep 5863 H (0-450) pg/mL C.difficile [id number] C. difficile Tox (PCR) Myles Results Last 24 Hours: Microbiology 05/22/18 21:30 Aerobic Blood Culture - Preliminary Blood - Venous NO GROWTH AFTER 3 DAYS Anaerobic Blood Culture - Preliminary NO GROWTH AFTER 3 DAYS 05/22/18 21:40 Aerobic Blood Culture - Preliminary Blood - Venous - Lab Draw NO GROWTH AFTER 3 DAYS Anaerobic Blood Culture - Preliminary NO GROWTH AFTER 3 DAYS Med Orders - Current: Current Medications Acetaminophen (Tylenol) 650 mg PO Q4H PRN PRN Reason: Pain (Mild 1-3)/fever Last Admin: 05/24/18 14:39 Dose: 650 mg Acetaminophen/Codeine Phosphate (Tylenol With Codeine No.3 300mg/30mg) 1 tab PO Q4H PRN PRN Reason: Pain Hydrocodone Bitart/Acetaminophen (Ipava 325-5 Mg) 1 tab PO Q4H PRN PRN Reason: Pain (moderate 4-6) Albuterol/Ipratropium (Duoneb 3.0-0.5 Mg/3 Ml) 3 ml NEB Q4H PRN PRN Reason: Shortness Of Breath/wheezing Amlodipine Besylate (Norvasc) 5 mg PO DAILY [facility] Last Admin: 05/26/18 08:52 Dose: 5 mg Bisacodyl (Dulcolax) 5 mg PO DAILY PRN PRN Reason: Constipation Clopidogrel Bisulfate (Plavix) 75 mg PO DAILY [facility] Last Admin: 05/26/18 08:47 Dose: 75 mg Docusate Sodium (Colace) 100 mg PO BID PRN PRN Reason: Constipation Hydralazine HCl (Apresoline) 20 mg IVPUSH Q6H PRN PRN Reason: Hypertension Last Admin: 05/25/18 19:23 Dose: 20 mg Hydromorphone HCl (Dilaudid) 0.25 mg IVPUSH Q2H PRN PRN Reason: Pain (severe 7-10) Promethazine HCl 6.25 mg/ (Sodium Chloride) 50.25 mls @ 100 mls/hr IV Q6H PRN PRN Reason: Nausea/Vomiting Levofloxacin/Dextrose 750 mg/ (Premix) 150 mls @ 100 mls/hr IV Q48H [facility] Last Admin: 05/25/18 12:56 Dose: 100 mls/hr Lorazepam (Ativan) 0.25 mg IV Q6H PRN PRN Reason: Anxiety Magnesium Oxide (Magnesium Oxide) 400 mg PO DAILY [facility] Last Admin: 05/26/18 08:46 Dose: 400 mg Metoprolol Tartrate (Lopressor) 5 mg IVPUSH Q4H PRN PRN Reason: Tachycardia Metoprolol Tartrate (Lopressor) 50 mg PO BID [facility] Last Admin: 05/26/18 08:52 Dose: 50 mg Miscellaneous Information (Remove Patch) 1 ea TRDERM DAILY [facility] Last Admin: 05/26/18 14:09 Dose: Not Given Multivitamins (Thera) 1 each PO DAILY [facility] Last Admin: 05/26/18 08:46 Dose: 1 each Nicotine (Habitrol) 21 mg TRDERM DAILY PRN PRN Reason: Nicotine Dependence Ondansetron HCl (Zofran) 4 mg IV Q6H PRN PRN Reason: Nausea/Vomiting Polyethylene Glycol (Miralax) 17 gm PO DAILY PRN PRN Reason: Constipation Rosuvastatin Calcium (Crestor) 40 mg PO DAILY [facility] Last Admin: 05/26/18 08:46 Dose: 40 mg Saccharomyces Boulardii (Florastor) 250 mg PO DAILY [facility] Last Admin: 05/26/18 08:46 Dose: 250 mg Senna/Docusate Sodium (Senna Plus) 1 tab PO BID PRN PRN Reason: Constipation Sertraline HCl (Zoloft) 100 mg PO DAILY [facility] Last Admin: 05/26/18 08:46 Dose: 100 mg Sodium Chloride (Saline Flush) 10 ml FLUSH ASDIRECTED PRN PRN Reason: Keep Vein Open Last Admin: 05/22/18 17:41 Dose: 10 ml Spironolactone (Aldactone) 25 mg PO DAILY [facility] Last Admin: 05/26/18 08:46 Dose: 25 mg Temazepam (Restoril) 7.5 mg PO BEDTIME PRN PRN Reason: Sleep Last Admin: 05/25/18 20:45 Dose: 7.5 mg Discontinued Medications Furosemide (Lasix) 40 mg PO DAILY [facility] Last Admin: 05/24/18 11:13 Dose: Not Given Furosemide (Lasix) 20 mg IVPUSH ONETIME ONE Stop: 05/26/18 06:01 Last Admin: 05/26/18 06:25 Dose: 20 mg Hydralazine HCl (Apresoline) 20 mg IVPUSH Q4H PRN PRN Reason: Hypertension Last Admin: 05/23/18 21:07 Dose: 20 mg Sodium Chloride (Normal Saline) 1,000 mls @ 500 mls/hr IV ONETIME ONE Stop: 05/22/18 19:23 Last Admin: 05/22/18 17:40 Dose: 500 mls/hr Ceftriaxone Sodium 2 gm/ (Sodium Chloride) 100 mls @ 100 mls/hr IV ONETIME ONE Stop: 05/22/18 20:08 Last Admin: 05/22/18 19:20 Dose: 100 mls/hr Ceftriaxone Sodium 1 gm/ (Sodium Chloride) 100 mls @ 200 mls/hr IV Q24H [facility] Last Admin: 05/24/18 17:10 Dose: 200 mls/hr Sodium Chloride (Sodium Chloride 0.45%) 1,000 mls @ 75 mls/hr IV ASDIRECTED [facility] Last Admin: 05/25/18 14:18 Dose: 75 mls/hr Iopamidol (Isovue-300 (61%)) 100 ml IVPUSH ONETIME ONE Stop: 05/22/18 17:56 Last Admin: 05/22/18 18:20 Dose: 100 ml Magnesium Oxide (Magnesium Oxide) 400 mg PO ONETIME ONE Stop: 05/22/18 23:39 Last Admin: 05/22/18 23:55 Dose: Not Given Magnesium Oxide (Magnesium Oxide) 400 mg PO ONETIME ONE Stop: 05/23/18 09:46 Last Admin: 05/23/18 10:15 Dose: 400 mg Magnesium Sulfate (Pharmacy To Dose - Magnesium Replacement) 0 dose .XX ASDIRECTED PRN PRN Reason: RX TO DOSE MAG Rosuvastatin 40 Mg (Tab) 0 each PO DAILY [facility] Last Admin: 05/24/18 11:03 Dose: 1 each Sertraline 100 Mg (Tab Ptom) 0 each PO DAILY [facility] Last Admin: 05/24/18 11:03 Dose: 1 each Potassium Chloride (Klor-Con M20) 40 meq PO DAILY [facility] Potassium Chloride (Pharmacy To Dose - Potassium Replacement) 0 dose .XX ASDIRECTED PRN PRN Reason: RX TO DOSE K Potassium Chloride (Klor-Con M20) 40 meq PO ONETIME ONE Stop: 05/24/18 20:31 Last Admin: 05/24/18 21:03 Dose: 40 meq Sodium Chloride (Saline Flush) 10 ml FLUSH ONETIME PRN PRN Reason: IV FLUSH Last Admin: 05/22/18 18:20 Dose: 10 ml - Exam Quality Assessment: DVT Prophylaxis General: Alert, Oriented, Cooperative, No Acute Distress HEENT: Pupils Equal, Pupils Reactive, EOMI Neck: Trachea Midline, No JVD Lungs: Normal Respiratory Effort Cardiovascular: Regular Rate GI/Abdominal Exam: Normal Bowel Sounds, Soft, Non-Tender, No Organomegaly, No Distention (Female) Exam: Deferred Back Exam: Normal Inspection Extremities: Non-Tender, Normal Capillary Refill Skin: Warm Neurological: No New Focal Deficit Psy/Mental Status: Alert, Normal Affect, Normal Mood - Problem List & Annotations (1) Dehydration SNOMED Code(s): 81967432 Code(s): E86.0 - DEHYDRATION Status: Acute Current Visit: Yes (2) Elevated CPK SNOMED Code(s): 663920907 Code(s): R74.8 - ABNORMAL LEVELS OF OTHER SERUM ENZYMES Status: Acute Current Visit: Yes (3) Fall SNOMED Code(s): 8485241, 714845173 Code(s): W19.XXXA - UNSPECIFIED FALL, INITIAL ENCOUNTER Status: Acute Current Visit: Yes (4) UTI (urinary tract infection) SNOMED Code(s): 33657985 Code(s): N39.0 - URINARY TRACT INFECTION, SITE NOT SPECIFIED Status: Acute Current Visit: Yes (5) CAD (coronary artery disease) SNOMED Code(s): 41229041 Code(s): I25.10 - ATHSCL HEART DISEASE OF [place] CORONARY ARTERY W/O ANG PCTRS Status: Chronic Current Visit: Yes (6) Aortic stenosis SNOMED Code(s): 95776639 Code(s): I35.0 - NONRHEUMATIC AORTIC (VALVE) STENOSIS Status: Chronic Current Visit: Yes (7) Depression SNOMED Code(s): 99676910 Code(s): F32.9 - MAJOR DEPRESSIVE DISORDER, SINGLE EPISODE, UNSPECIFIED Status: Chronic Current Visit: Yes (8) Hx of CABG SNOMED Code(s): 784285597, 805777231 Code(s): Z95.1 - PRESENCE OF AORTOCORONARY BYPASS GRAFT Status: Acute Current Visit: Yes - Problem List Review Problem List Initiated/Reviewed/Updated: Yes - Plan Plan:: Assessment/Plan: Acute: S/p Fall - Risk factors: Gait Instability and Impaired Hearing - Prodromal symptom of dizziness - Admit to not using her walker or cane all the time - All imaging studies showed no acute abnormal findings - Orthostasis not done in ED - PT/OT consult - 2D echo to assess cardiac function: she carries a hx/o (maybe the cause of her dizziness) UTI - Continue Levoquin - Asymptomatic - Afebrile with Mild Leukocytosis - Received IV Rocephin in ED--> will continue Malignant Hypertension - Carries a hx/o HTN - She states she has not been taking some of medications for a few days now - Documented BP of 203/96 mmHg on admission - Continue home meds - PRN anti-hypertensive medications Elevated ProBNP Level - Carries a hx/o HF with unknown EF (no 2D echo in EMR) - ProBNP level 3384 - She is not volume overloaded - 2D echo to assess cardiac function--> maybe the cause of her dizziness Mildly Elevated CPK Level - 661 --> S/p Fall - Will monitor renal function Gait Instability - She has assistive device at home but does not use it all the time - PT/OT eval - Advised the importance of treatment adherence Medical Non-Adherence S/p Dizziness Chronic: Impaired hearing HF with Unknown EF HTN HLD CABG x 3 S/p [place] Aortic Stenosis Gout Hx/o Hernia Depression Plan: MSP Resume Home Meds Routine AM Labs PT/OT consult Fall Precautions SW/CM for d/c planning Code status: 1 at this point LOS> 96 hours with ARF, AUTI; DC planned 05/27/18.
[2018-05-26] MEDS: Temazepam 7.5 MG Cap PO PRN (23:23)
[2018-05-27] MEDS: Rosuvastatin 10 MG Tab PO SCH (08:30)
[2018-05-27] MEDS: Sertraline 50 MG Tab PO SCH (08:31)
[2018-05-27] MEDS: Metoprolol Tartrate 50 MG Tab PO SCH (08:31)
[2018-05-27] MEDS: Spironolactone 25 MG Tab PO SCH (08:32)
[2018-05-27] MEDS: Saccharomyces Boulardii (Probiotic) 250 MG Cap PO SCH (08:32)
[2018-05-27] MEDS: Magnesium Oxide 400 MG Tab PO SCH (08:32)
[2018-05-27] MEDS: amLODIPine 5 MG Tab PO SCH (08:32)
[2018-05-27] MEDS: Multivitamins,Therapeutic Tab PO SCH (08:32)
[2018-05-27] MEDS: Clopidogrel 75 MG Tab PO SCH (08:32)
[2018-05-27] MEDS: Levofloxacin/Dextrose 5%-Water 750 MG in Premix Bag 1 BAG IV SCH ×2 (11:11→12:26)
[2018-05-27 12:21] VITALS: BP 127/70
--- NOTE | 2018-05-27 14:12 | PCM.DCSUM1 ---
Discharge Summary - Hospital Course Free Text/Narrative:: 77 year old female s/p fall without fracture to extremities or LOC. She was treated for DHF, AUTI and systolic hypertension. The patient had home medication adjustment. She was diuresed. Empiric ATB was given, UC grew staph aureus. She was DCd on Levoquin 250 mg daily for 5 days. A probiotic was provided. She complained about diarrhea, C diff was negative. The patient was DCd to home, she will be living with family [place] of state. A prescription for BMP was provided to check renal function and electrolytes in one week. HPI Initial Comments: This is a 77 yo Impaired Hearing, HF with Unknown EF, HTN, HLD, CABG x 3 S/p [place] , Aortic Stenosis, Gout, Hx/o Hernia, and Depression who comes in for evaluation after she had a non traumatic fall that took place the day before yesterday and has been on the floor since then. She reports a prodromal symptom of dizziness. On her way down, she hit her head but she denies any loss of consciousness. On presentation to ED, she admits to having headache, neck, shoulder, lower abdominal, back pain and left hip pain. She denies being on blood thinners. She has ambulatory assistive device but has not been using it routinely. Her initial work up in ED shows a CBC remarkable for WBC of 10.91, MVP of 8.9, Neutrophils of 91%, Lymphocytes of 8% and Monocytes of 1%. Her chemistry is significant for CO2 of 19, Ag of 23.2, Cr of 1.2, AST of 45, CK of 661 and PRoBNP level of 3384. Her UA is highly suggestive of dehydration and UTI. All her imaging studies not acutes abnormal findings per report. Patient is being admitted for UTI and Malignant HTN. She is full code. Diagnosis: Stroke: No - Discharge Data Discharge Date: 05/27/18 Discharge Disposition: Home, Self-Care 01 Condition: Good - Discharge Diagnosis/Problem(s) (1) Dehydration SNOMED Code(s): 03075004 ICD Code: E86.0 - DEHYDRATION Status: Acute (2) Elevated CPK SNOMED Code(s): 041374531 ICD Code: R74.8 - ABNORMAL LEVELS OF OTHER SERUM ENZYMES Status: Acute (3) Fall SNOMED Code(s): 5532044, 544715866 ICD Code: W19.XXXA - UNSPECIFIED FALL, INITIAL ENCOUNTER Status: Acute (4) UTI (urinary tract infection) SNOMED Code(s): 61617957 ICD Code: N39.0 - URINARY TRACT INFECTION, SITE NOT SPECIFIED Status: Acute (5) CAD (coronary artery disease) SNOMED Code(s): 27374082 ICD Code: I25.10 - ATHSCL HEART DISEASE OF [place] CORONARY ARTERY W/O ANG PCTRS Status: Chronic (6) Aortic stenosis SNOMED Code(s): 37855050 ICD Code: I35.0 - NONRHEUMATIC AORTIC (VALVE) STENOSIS Status: Chronic (7) Depression SNOMED Code(s): 32529650 ICD Code: F32.9 - MAJOR DEPRESSIVE DISORDER, SINGLE EPISODE, UNSPECIFIED Status: Chronic (8) Hx of CABG SNOMED Code(s): 242752844, 275587793 ICD Code: Z95.1 - PRESENCE OF AORTOCORONARY BYPASS GRAFT Status: Chronic - Patient Summary/Data Consults: Consultations 05/22/18 20:52 Consult to Case Management/Optometrist [CONS] Routine Consult to Spiritual Care [CONS] Routine OT Evaluation and Treatment [CONS] Routine PT Evaluation and Treatment [CONS] Routine Respiratory Care Assess and Treatment [CONS] Routine - Patient Instructions Diet: Usual Diet as Tolerated Activity: As Tolerated Driving: Do Not Drive Showering/Bathing: May Shower Notify Provider of: Fever, Increased Pain, Nausea and/or Vomiting - Discharge Plan *PRESCRIPTION DRUG MONITORING PROGRAM REVIEWED*: No *COPY OF PRESCRIPTION DRUG MONITORING REPORT IN PATIENT TARIK: No Prescriptions/Med Rec: Furosemide [Lasix] 40 mg PO DAILY #30 tablet levoFLOXacin [Levaquin] 250 mg PO Q24H #5 tablet Magnesium Oxide 400 mg PO BID #60 tablet Metoprolol Tartrate 50 mg PO BIDPC #60 tablet Multivitamin [Multivitamins] 1 tab PO DAILY #30 capsule Nicotine [Habitrol] 21 mg TRDERM DAILY PRN #30 patch PRN Reason: Nicotine Dependence Polyethylene Glycol 3350 [MiraLAX] 17 gm PO DAILY PRN #30 packet PRN Reason: Constipation Potassium Chloride 20 meq PO DAILY #60 tablet.er Rosuvastatin [Crestor] 40 mg PO DAILY #30 tablet Saccharomyces Boulardii [Florastor] 250 mg PO DAILY #30 cap Sertraline [Zoloft] 100 mg PO DAILY #30 tablet Spironolactone [Aldactone] 25 mg PO DAILY #30 tablet Home Medications: Home Meds Acetaminophen/Codeine [Tylenol with Codeine No.3 300MG/30MG] 1 cap PO Q4HR PRN 12/31/14 [History] amLODIPine [Norvasc] 5 mg PO DAILY 12/31/14 [History] Clopidogrel [Plavix] 75 mg PO DAILY 05/22/18 [History] Furosemide [Lasix] 40 mg PO DAILY #30 tablet 05/27/18 [Rx] Magnesium Oxide 400 mg PO BID #60 tablet 05/27/18 [Rx] Metoprolol Tartrate 50 mg PO BIDPC #60 tablet 05/27/18 [Rx] Multivitamin [Multivitamins] 1 tab PO DAILY #30 capsule 05/27/18 [Rx] Nicotine [Habitrol] 21 mg TRDERM DAILY PRN #30 patch 05/27/18 [Rx] Polyethylene Glycol 3350 [MiraLAX] 17 gm PO DAILY PRN #30 packet 05/27/18 [Rx] Potassium Chloride 20 meq PO DAILY #60 tablet.er 05/27/18 [Rx] Rosuvastatin [Crestor] 40 mg PO DAILY #30 tablet 05/27/18 [Rx] Saccharomyces Boulardii [Florastor] 250 mg PO DAILY #30 cap 05/27/18 [Rx] Sertraline [Zoloft] 100 mg PO DAILY #30 tablet 05/27/18 [Rx] Spironolactone [Aldactone] 25 mg PO DAILY #30 tablet 05/27/18 [Rx] levoFLOXacin [Levaquin] 250 mg PO Q24H #5 tablet 05/27/18 [Rx] Other Amb Orders: BASIC METABOLIC PANEL,BMP [CHEM] Time Frame: 05/31/18, Location: None Selected Patient Handouts: Antibiotic Medicine, Adult, [id number], Urinary Tract Infection, Adult, [id number], Dehydration, Elderly, Heart Failure, Easy-to- Read Forms: ED Department Discharge Referrals: Marisol Samuels MD [Physician] - PCP,None [Primary Care Provider] - - Discharge Summary/Plan Comment DC Time >30 min.: No Discharge Summary/Plan Comment: Acute: S/p Fall - Risk factors: Gait Instability and Impaired Hearing - Prodromal symptom of dizziness - Admit to not using her walker or cane all the time - All imaging studies showed no acute abnormal findings - Orthostasis not done in ED - PT/OT consult - 2D echo to assess cardiac function: she carries a hx/o (maybe the cause of her dizziness) UTI - Continue Levoquin - Asymptomatic - Afebrile with Mild Leukocytosis - Received IV Rocephin in ED--> will continue; stopped. Malignant Hypertension - Carries a hx/o HTN - She states she has not been taking some of medications for a few days now - Documented BP of 203/96 mm Hg on admission - Continue home meds - PRN anti-hypertensive medications Elevated ProBNP Level - Carries a hx/o HF with unknown EF (no 2D echo in EMR); LVEF 65%, mild Ao Sclerosis HeFPef, DHF, stable - ProBNP level 3384 - She is not volume overloaded - 2D echo to assess cardiac function--> maybe the cause of her dizziness Mildly Elevated CPK Level - 661 --> S/p Fall - Will monitor renal function Gait Instability - She has device at home but does not use it all the time - PT/OT eval - Advised the importance of treatment adherence Medical Non-Adherence S/p Dizziness Chronic: Impaired hearing HTN HLD CABG x 3 S/p OH Gout Hx/o Hernia Depression Plan: MSP Resume Home Meds Routine AM Labs PT/OT consult Fall Precautions SW/CM for d/c planning Code status: 1 at this point LOS> 96 hours with ARF, AUTI; DC planned 05/27/18. - General Info Date of Service: 05/24/18 Functional Status: Reports: Pain Controlled, Tolerating Diet, Ambulating, Urinating - Review of Systems General: Reports: No Symptoms HEENT: Reports: No Symptoms Pulmonary: Reports: No Symptoms Cardiovascular: Reports: No Symptoms Gastrointestinal: Reports: No Symptoms Genitourinary: Reports: No Symptoms Musculoskeletal: Reports: No Symptoms Skin: Reports: No Symptoms Neurological: Reports: No Symptoms Psychiatric: Reports: No Symptoms - Patient Data Vitals - Most Recent: Last Vital Signs Temp 36.6 C 05/27/18 12:18 Pulse 53 L 05/27/18 12:18 Resp 16 05/27/18 12:18 BP 127/70 05/27/18 12:18 Pulse Ox 96 05/27/18 12:18 Weight - Most Recent: 58.712 kg I&O - Last 24 hours: Intake & Output 05/26/18 05/27/18 05/27/18 22:59 06:59 14:59 Intake Total 980 400 120 Output Total 2100 500 Balance -1120 -100 120 Lab Results - Last 24 hrs: Laboratory Results - last 24 hr 05/27/18 05/27/18 Range/Units 05:49 05:49 WBC 4.94 (3.98-10.04) K/mm3 RBC 3.16 L (3.98-5.22) M/mm3 Hgb 9.8 L (11.2-15.7) gm/L Hct 29.8 L (34.1-44.9) % MCV 94.3 (79.4-94.8) fl MCH 31.0 (25.6-32.2) pg MCHC 32.9 (32.2-35.5) g/dl RDW Std Deviation 46.6 H (36.4-46.3) fL Plt Count 184 (182-369) K/mm3 MPV 9.4 (9.4-12.3) fl Neut % (Auto) 49.6 (34.0-71.1) % Lymph % (Auto) 32.8 (19.3-51.7) % [place] % (Auto) 13.0 H (4.7-12.5) % Eos % (Auto) 4.0 (0.7-5.8) Baso % (Auto) 0.4 (0.1-1.2) % Neut # (Auto) 2.45 (1.56-6.13) K/mm3 Lymph # (Auto) 1.62 (1.18-3.74) K/mm3 [place] # (Auto) 0.64 H (0.24-0.36) K/mm3 Eos # (Auto) 0.20 (0.04-0.36) K/mm3 Baso # (Auto) 0.02 (0.01-0.08) K/mm3 Sodium 140 (136-145) mEq/L Potassium 4.1 (3.5-5.1) mEq/L Chloride 109 H (98-107) mEq/L Carbon Dioxide 24 (21-32) mEq/L Anion Gap 11.1 (5-15) BUN 20 H (7-18) mg/dL Creatinine 1.3 H (0.55-1.02) mg/dL Est Cr Clr Drug Dosing TNP Estimated GFR (MDRD) 40 (>60) mL/min BUN/Creatinine Ratio 15.4 (14-18) Glucose 90 (83-115) mg/dL Calcium 8.7 (8.5-10.1) mg/dL Magnesium 1.8 (1.8-2.4) mg/dl C-Reactive Protein 2.2 H* (<1.0) mg/dL ANNETTE Results - Last 24 hrs: Microbiology 05/22/18 21:30 Aerobic Blood Culture - Preliminary Blood - Venous NO GROWTH AFTER 4 DAYS Anaerobic Blood Culture - Preliminary NO GROWTH AFTER 4 DAYS 05/22/18 21:40 Aerobic Blood Culture - Preliminary Blood - Venous - Lab Draw NO GROWTH AFTER 4 DAYS Anaerobic Blood Culture - Preliminary NO GROWTH AFTER 4 DAYS Med Orders - Current: Current Medications Acetaminophen (Tylenol) 650 mg PO Q4H PRN PRN Reason: Pain (Mild 1-3)/fever Last Admin: 05/24/18 14:39 Dose: 650 mg Acetaminophen/Codeine Phosphate (Tylenol With Codeine No.3 300mg/30mg) 1 tab PO Q4H PRN PRN Reason: Pain Last Admin: 05/26/18 23:23 Dose: 1 tab Hydrocodone Bitart/Acetaminophen ([place] 325-5 Mg) 1 tab PO Q4H PRN PRN Reason: Pain (moderate 4-6) Albuterol/Ipratropium (Duoneb 3.0-0.5 Mg/3 Ml) 3 ml NEB Q4H PRN PRN Reason: Shortness Of Breath/wheezing Amlodipine Besylate (Norvasc) 5 mg PO DAILY [facility] Last Admin: 05/27/18 08:32 Dose: 5 mg Bisacodyl (Dulcolax) 5 mg PO DAILY PRN PRN Reason: Constipation Clopidogrel Bisulfate (Plavix) 75 mg PO DAILY [facility] Last Admin: 05/27/18 08:32 Dose: 75 mg Docusate Sodium (Colace) 100 mg PO BID PRN PRN Reason: Constipation Furosemide (Lasix) 40 mg PO DAILY [facility] Hydralazine HCl (Apresoline) 20 mg IVPUSH Q6H PRN PRN Reason: Hypertension Last Admin: 05/25/18 19:23 Dose: 20 mg Hydromorphone HCl (Dilaudid) 0.25 mg IVPUSH Q2H PRN PRN Reason: Pain (severe 7-10) Promethazine HCl 6.25 mg/ (Sodium Chloride) 50.25 mls @ 100 mls/hr IV Q6H PRN PRN Reason: Nausea/Vomiting Levofloxacin/Dextrose 750 mg/ (Premix) 150 mls @ 100 mls/hr IV Q48H [facility] Last Admin: 05/27/18 12:26 Dose: Not Given Levofloxacin (Levaquin) 250 mg PO Q24H [facility] Lorazepam (Ativan) 0.25 mg IV Q6H PRN PRN Reason: Anxiety Magnesium Oxide (Magnesium Oxide) 400 mg PO DAILY [facility] Last Admin: 05/27/18 08:32 Dose: 400 mg Metoprolol Tartrate (Lopressor) 5 mg IVPUSH Q4H PRN PRN Reason: Tachycardia Metoprolol Tartrate (Lopressor) 50 mg PO BID [facility] Last Admin: 05/27/18 08:31 Dose: 50 mg Miscellaneous Information (Remove Patch) 1 ea TRDERM DAILY [facility] Last Admin: 05/27/18 08:33 Dose: Not Given Multivitamins (Thera) 1 each PO DAILY [facility] Last Admin: 05/27/18 08:32 Dose: 1 each Nicotine (Habitrol) 21 mg TRDERM DAILY PRN PRN Reason: Nicotine Dependence Ondansetron HCl (Zofran) 4 mg IV Q6H PRN PRN Reason: Nausea/Vomiting Polyethylene Glycol (Miralax) 17 gm PO DAILY PRN PRN Reason: Constipation Rosuvastatin Calcium (Crestor) 40 mg PO DAILY [facility] Last Admin: 05/27/18 08:30 Dose: 40 mg Saccharomyces Boulardii (Florastor) 250 mg PO DAILY [facility] Last Admin: 05/27/18 08:32 Dose: 250 mg Senna/Docusate Sodium (Senna Plus) 1 tab PO BID PRN PRN Reason: Constipation Sertraline HCl (Zoloft) 100 mg PO DAILY [facility] Last Admin: 05/27/18 08:31 Dose: 100 mg Sodium Chloride (Saline Flush) 10 ml FLUSH ASDIRECTED PRN PRN Reason: Keep Vein Open Last Admin: 05/22/18 17:41 Dose: 10 ml Spironolactone (Aldactone) 25 mg PO DAILY [facility] Last Admin: 05/27/18 08:32 Dose: 25 mg Temazepam (Restoril) 7.5 mg PO BEDTIME PRN PRN Reason: Sleep Last Admin: 05/26/18 23:23 Dose: 7.5 mg Discontinued Medications Furosemide (Lasix) 40 mg PO DAILY [facility] Last Admin: 05/24/18 11:13 Dose: Not Given Furosemide (Lasix) 20 mg IVPUSH ONETIME ONE Stop: 05/26/18 06:01 Last Admin: 05/26/18 06:25 Dose: 20 mg Hydralazine HCl (Apresoline) 20 mg IVPUSH Q4H PRN PRN Reason: Hypertension Last Admin: 05/23/18 21:07 Dose: 20 mg Sodium Chloride (Normal Saline) 1,000 mls @ 500 mls/hr IV ONETIME ONE Stop: 05/22/18 19:23 Last Admin: 05/22/18 17:40 Dose: 500 mls/hr Ceftriaxone Sodium 2 gm/ (Sodium Chloride) 100 mls @ 100 mls/hr IV ONETIME ONE Stop: 05/22/18 20:08 Last Admin: 05/22/18 19:20 Dose: 100 mls/hr Ceftriaxone Sodium 1 gm/ (Sodium Chloride) 100 mls @ 200 mls/hr IV Q24H [facility] Last Admin: 05/24/18 17:10 Dose: 200 mls/hr Sodium Chloride (Sodium Chloride 0.45%) 1,000 mls @ 75 mls/hr IV ASDIRECTED [facility] Last Admin: 05/25/18 14:18 Dose: 75 mls/hr Iopamidol (Isovue-300 (61%)) 100 ml IVPUSH ONETIME ONE Stop: 05/22/18 17:56 Last Admin: 05/22/18 18:20 Dose: 100 ml Magnesium Oxide (Magnesium Oxide) 400 mg PO ONETIME ONE Stop: 05/22/18 23:39 Last Admin: 05/22/18 23:55 Dose: Not Given Magnesium Oxide (Magnesium Oxide) 400 mg PO ONETIME ONE Stop: 05/23/18 09:46 Last Admin: 05/23/18 10:15 Dose: 400 mg Magnesium Sulfate (Pharmacy To Dose - Magnesium Replacement) 0 dose .XX ASDIRECTED PRN PRN Reason: RX TO DOSE MAG Rosuvastatin 40 Mg (Tab) 0 each PO DAILY [facility] Last Admin: 05/24/18 11:03 Dose: 1 each Sertraline 100 Mg (Tab Ptom) 0 each PO DAILY [facility] Last Admin: 05/24/18 11:03 Dose: 1 each Potassium Chloride (Klor-Con M20) 40 meq PO DAILY [facility] Potassium Chloride (Pharmacy To Dose - Potassium Replacement) 0 dose .XX ASDIRECTED PRN PRN Reason: RX TO DOSE K Potassium Chloride (Klor-Con M20) 40 meq PO ONETIME ONE Stop: 05/24/18 20:31 Last Admin: 05/24/18 21:03 Dose: 40 meq Sodium Chloride (Saline Flush) 10 ml FLUSH ONETIME PRN PRN Reason: IV FLUSH Last Admin: 05/22/18 18:20 Dose: 10 ml - Exam Quality Assessment: Reports: DVT Prophylaxis General: Reports: Alert, Oriented, Cooperative HEENT: Reports: Pupils Equal, Pupils Reactive, EOMI Neck: Reports: Trachea Midline, No JVD Lungs: Reports: Normal Respiratory Effort Cardiovascular: Reports: Regular Rate, Regular Rhythm GI/Abdominal Exam: Normal Bowel Sounds, Soft, Non-Tender, No Organomegaly, No Distention (Female) Exam: Deferred Rectal (Female) Exam: Deferred Back Exam: Reports: Normal Inspection Extremities: Non-Tender, No Pedal Edema, Normal Capillary Refill Skin: Reports: Warm Neurological: Reports: No New Focal Deficit, Normal Speech Psy/Mental Status: Reports: Alert, Normal Affect, Normal Mood
[2018-05-28] MEDS ORDERED: Furosemide 40 MG Tab PO SCH (09:00)
[2018-05-28] MEDS ORDERED: Levofloxacin 250 MG Tab PO SCH (11:00)
== END 2018-05-27 13:50 | disposition home or self-care (01) | DRG 292 ==
LOC: JD.ED 16:51 → JD.MS 22:21 → OBSVTOIN 05-24 12:23
PROVIDERS: ADMIT Internal Medicine; ATTEND Internal Medicine
DX: I11.0 Hypertensive heart disease with heart failure (principal); N39.0 Urinary tract infection, site not specified; N17.9 Acute kidney failure, unspecified; I50.9 Heart failure, unspecified; E86.0 Dehydration; W19.XXXA Unspecified fall, initial encounter; E78.00 Pure hypercholesterolemia, unspecified; I35.0 Nonrheumatic aortic (valve) stenosis; H91.93 Unspecified hearing loss, bilateral; R74.8 Abnormal levels of other serum enzymes; I50.32 Chronic diastolic (congestive) heart failure; K52.9 Noninfective gastroenteritis and colitis, unspecified; E78.5 Hyperlipidemia, unspecified; R26.89 Other abnormalities of gait and mobility; F32.9 Major depressive disorder, single episode, unspecified; I25.2 Old myocardial infarction; Z95.1 Presence of aortocoronary bypass graft; R51 Headache; R42 Dizziness and giddiness; M54.2 Cervicalgia; M25.512 Pain in left shoulder; M10.9 Gout, unspecified; M25.511 Pain in right shoulder; R31.9 Hematuria, unspecified; M54.9 Dorsalgia, unspecified; R10.30 Lower abdominal pain, unspecified; M25.552 Pain in left hip; Z90.49 Acquired absence of other specified parts of digestive tract; Z96.659 Presence of unspecified artificial knee joint; Z96.619 Presence of unspecified artificial shoulder joint; Z79.02 Long term (current) use of antithrombotics/antiplatelets; Z79.899 Other long term (current) drug therapy; Z87.891 Personal history of nicotine dependence; Z91.14 Patient's other noncompliance with medication regimen
CPT/HCPCS: 36415 ×3; 70450; 71260; 72125; 74177; 80048 ×2; 80053; 81001; 82550 ×2; 83605; 83735 ×3; 83880 ×3; 84484; 85007; 85025 ×2; 85027; 85610; 85730; 86140 ×2; 87040 ×2; 87086; 87641; 93005; 93306; 96361; 96365; 96366; 97116 ×5; 97161; 97165; 97530 ×2; 99285; A9270 ×21; J0360 ×2; J0696 ×2; J7030 ×3; J7040; J7050 ×2; Q9967; 87088; 87186; 87493; 93010; 99284; J1956